=== PATIENT | female | born 1945 | race Two or more races ===

== ENCOUNTER 2021-12-17 08:13 | Outpatient (CLI) | payer BC, SELFPAY ==
--- OUTSIDE RECORDS SUMMARY | 2021-12-17 08:17 | XMS_ITS | Encounter Summary ---
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 Referral ID Status Reason Start Date Expiration Date Visits Requ ested Visits Authorized [id number] Closed 04/01/2021 04/01/2022 1 1 Encounter Details Date Type Department Care Team Description 06/24/2021 Office Visit Department of Jason Billings, Focal Com plex Partial Neurology in [place], M.P.H. Epilepsy Not [place], [place] Intractable Without [address] Status Epilepticus [place], [place] (HCC) (Primary Dx) [id number] Social History Tobacco Use Types Packs/Day Years Used Date Smoking Tobacco: Never Smokeless Tobacco: Never Alcohol Use Standard Drinks/Week Comments Never 0 (1 standard drink = 0.6 oz pure alcoho l) Alcohol Habits Answer Date Recorded How often do you have a drink containing alcohol? Never 03/27/2021 How many drinks containing alcohol do you have on a typical Not asked day when you are drinking? How often do you have six or more drinks on one occasion? No t asked Social Isolation Answer Date Recorded In a typical week, how many times do you More than three norbert es a week 03/27/2021 talk on the phone with family, friends, or neighbors? How often do you get together with friends Once a week 03/27/2021 or relatives? How often do you attend religion or More than 4 times per year 03/27/2021 pentecostalism services? Do you belong to any clubs or No 03/27/2021 organizations such as religion groups, unions, fraOpenRoute or athletic groups, or school groups? How often do you attend meetings of the Never 03/27/2021 clubs or organizations you belong to? Are you now , , , 03/27/2021 , never or living with a partner? Physical Activity Answer Date Recorded On average, how many days per week do you engage in moderate to 2 days 03/27/2021 strenuous exercise (like walking fast, running, jogging, dancing, swimming, biking, or other activities that cause a light or heavy sweat)? On average, how many minutes do you engage in exercise at th is 30 min 03/27/2021 level? Stress Answer Date Recorded Do you feel stress - tense, restless, nervous, or Only a lit tle 03/27/2021 anxious, or unable to sleep at night because your mind is troubled all the time - these days? Intimate Partner Violence Answer Date Recorded Within the last year, have you been afraid of your partner o r No 03/27/2021 ex-partner? Within the last year, have you been humiliated or emotionall y No 03/27/2021 abused in other ways by your partner or ex-partner? Within the last year, have you been kicked, hit, slapped, or No 03/27/2021 otherwise physically hurt by your partner or ex-partner? Within the last year, have you been raped or forced to have any No 03/27/2021 kind of sexual activity by your partner or ex-partner? Food Insecurity Answer Date Recorded Within the past 12 months, you worried that your food would Never true 03/27/2021 run out before you got money to buy more. Within the past 12 months, the food you bought just didn't N ever true 03/27/2021 last and you didn't have money to get more. Transportation Needs Answer Date Recorded In the past 12 months, has lack of transportation kept you f rom No 03/27/2021 medical appointments or from getting medications? In the past 12 months, has lack of transportation kept you f rom No 03/27/2021 meetings, work, or getting things needed for daily living? Housing Stability Answer Date Recorded In the last 12 months, was there a time when you were Patien t refused 03/27/2021 not able to pay the mortgage or rent on time? In the last 12 months, how many places have you lived? 1 03/27/2021 In the last 12 months, was there a time when you did No 03/27/[address] to sleep or slept in a fdc (including now)? Education Answer Date Recorded What is the highest level of school you have completed or th e 3rd grade 03/27/2021 highest degree you have received? 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 - 06/24/2021 1:00 PM CDT SUBJECTIVE Referring Provider: Jason Billings M.D., M.P.H. Consult conducted via real-time audio technology by Jason Billings M.D., M.P.H. in [facility] to the patient in Patient's Home . Interview was performed with certified court interpreter Allison Conn. Video was unavailable. CHIEF COMPLAINT / REASON FOR VISIT Alethea Lambert is a 75 y.o. right-handed female who presents for follow up of seizure.She has a past medical history of HTN and reported remote stroke with minimal residual right hemiparesis and dysphagia, which is disputed (see HPI). Exam provided through the aid of mop worker.Patient's granddaughter, who is bilingual, gives additional collateral. HISTORY OF PRESENT ILLNESS (01/18/20): Patient was in her normal state until November 2019. On 11/24/19 , patient had an episode out of sleep witnessed by wherein she was shaking uncontrollably. It may have lasted for about a minute but this is unclear. She was unable to speak at the time. Her granddaughter noted that she was havingoral automatism- like movements which looked like a goldfish with tongue extension. No bowel/bladder loss or tongue biting. After the shaking, she had hyperventilation. She was unable to speak for ~30 minutes after the shaking; she was able to speak in the ambulance. However, patient herself has no recollection of the event until arrival at the OSH. On admission to OSH, lactate was 3.5, with repeat2.0. Na was 129. SBP was in the 200s per report. She was not started on any ASM during hospitalization and no EEG has ever been performed as of this writing. Subsequently, she was seen in the ED on 12/25/19. Again, she had an event where she woke up her after shaking. She had the same 30-minute postictal phase with oral automatisms. She was started on Keppra 500 mg BID at that time and has had no subsequent events. Regarding patient's stroke diagnosis, it occurred in the [place] about ten years ago. Shereportedly had right sided hemiparesis. She does not remember the sequence of events but she also reportedly had a fall with loss of consciousness for an unspecified period of time. She does not remember any imaging done. It took about a year for her to recover from the right hemiparesis. She now states that she has a voice and bilateral hand tremor, more prominent in the right hand. It is an exclusively action tremor and is significant enough to preclude her from using her right hand to drink beverages. She also has a voice tremor that is stammering, and the aerial photograph interpreter had some difficult understanding her. Follow up (04/25/20): At last visit we titrated Lamotrigine to 100 mg BID (see 01/25/20 note for titration details) and obtained lamotrigine level 6 weeks later (theraputic at 3.1). She has had no subsequent seizures. She is not having the odor/difficulty swallowing she had with Keppra, and is tolerating lamotrigine without rash, dizziness, nausea/vomiting, or other symptoms. She admits she had some issues with compliance when she started lamotrigine but has not had further issues. No staring, auras, focal weakness, numbness, or paresthesia. The tremor she mentioned at initial visit is still there but very slight and does not impair her much. She has no other complaints. 04/01/21: At last visit we continued lamotrigine 100 mg BID as she had been seizure free with no adverse effects. No mohsen rash. Today, she confirms that she has not had any further seizures or adverse effects. No incontinence, tammy vu, or staring spells. She has been having chronic neck and shoulder pain but it has not been getting worse. No focal weakness, numbness, or tingling. There is no focal weakness in her right arm but there is pain. She has been having subacute right ear pain for four months. At the time she was given antibiotics (at outside hospital) for one week. She took the full course. Now, it is less of an ear pain and more of a pulsatile tinnitus over the right ear only. There has been some issues with swallowing as well, which are subacute on chronic. She had been seenby ENT some time ago and they had said there was an issue with her vocal cords. She denies fever, chills, night sweats. She does endorse some chronic rhinorrhea. 06/24/21: At last visit we continued lamotrigine 100 mg BID. Given some issues with dysphasia we referred her to ENT. Her MRI of the neck showed Opacified right petrous apex and moderate right mastoid effusion with associated enhancements possibly consistent with right petrous apicitis. I called her that day.Per my phone call, She had an ear infection some months ago. She was febrile at times some months ago but has not been febrile recently, nor has there been nausea or vomiting. There was otorrhea some months ago. However, she still is having ear pain, retro-orbital pain, and right facial pain. She does not have restriction of her eye movements. I recommended her go to the local ED for a temporal bone CT. She has an ENT visit today. With respect to this, she did go to the emergency room where a CT temporal bone was reportedly unremarkable (we do not have the images). Her WBC count was normal and the ED staff did not feel further antibiotics were necessary. Today, she re-confirms she has not had seizures. She had some light bruising on her arms but no mohsen areas of rash or bullae. No incontinence, tammy vu, or staring spells. The ear pain from last visit has resolved, though she notes her ear is itchy. The pulsatile tinnitusover the right ear is persisting but less notable. There is no vertigo or presyncope. There have been continued issues with swallowing as well, which are subacute on chronic. She had been seen by ENT some time ago and they had said there was an issue with her vocal cords. Her swallow study showed a small sliding hiatal hernia and ring at the gastroesophageal junction that did not delay passage of barium tablet. She denies fever, chills, night sweats. She does endorse some chronic rhinorrhea. Onset: November 2019 Seizure Description: See HPI Current Seizure Control: Two lifetime seizures Risk factors: Quesionable stroke hx Epilepsy Type: Unknown Epilepsy Syndrome: No defined syndrome Etiology: Unknown Prior medications: Keppra 500 mg BID; She has had some issues with reflux and has a bad taste all day after taking keppra. She does endorse compliance. Current medications: LTG 100 mg BID Side effects: n/a Other treatments: N/A Prior workup: MRI: MRI brain w/o contrast 11/24/19: No acute infarct or intracranial abnormality. No edema or other abnormality involving hippocampal sclerosis. Scattered presumed chronic microvascular ischemic changes/senescent gliosis within the supratentorial white matter. MRI brain 01/19/20 ([place]): FINDINGS: Mild asymmetric increase in T2 signal in the left hippocampal formation and left amygdala (series 20 image 100) without abnormal volume loss. ?? No evidence of forman matter heterotopia, polymicrogyria or pachygyria. No cortically based tissue loss. Mild scattered leukoaraiosis. No intracranial mass effect, evidence of acute infarct or extra-axial collection. Mucous retention cysts in the in a left ethmoid air cell and left inferior maxillary sinus. ?? Image post-processing for quantitative segmental volume reporting and assessment was performed on an independent computer warrant server using [employer] software. The clinical indication for performing the post-processing was seizure . Review of the head of quality images demonstrates good/poor segmentation of the hippocampi. ?? Left hippocampal volume: 3.23 cm3 Left hippocampal volume age-adjusted percentile: 85 % Right hippocampal volume: 3.44 cm3 Right hippocampal volume age-adjusted percentile: 87 % Hippocampal asymmetry index: -6.36 % Asymmetry index percentile: 45th percentile ?? IMPRESSION: Slightly increased T2 signal within the left hippocampal formation and left amygdala without asymmetric volume loss. EEG/EMU: Clinical Interpretation: The short-term video EEG shows a moderate degree of nonspecific slow wave abnormalities over the bilateral temporal regions, which occurs maximally over the left temporal region. There is excess generalized fast activity present, which can be seen secondary to medication effects. The sleep recording was unsuccessful. No definitively epileptiform activity was present during the awake or drowsy recordings. ?? PET: N/A OTHER: N/A Co-morbidities: N/A Is the patient aware of driving and other safety concerns related to epilepsy: Patient does not drive If the patient is female and of child-bearing age, is she aware how epilepsy medications may affect contraceptive use and ?: Not applicable The following portions of the patient's history were reviewed and updated as appropriate: allergies,current medications, family history, medical history, social history, surgical history and problem list. REVIEW OF SYSTEMS Ten point review of systems completed; pertinent positives noted in HPI. OBJECTIVE I have reviewed vital signs as recorded in the EPIC record. PHYSICAL EXAM Mental Status: General - Awake, alert. Orientation - Oriented to person, place, time, and situation. Attention - Attends to examiner. Language - Normal fluency, and prosody, able to name and repeat Memory - Good recall of personal information. Knowledge - Fund of knowledge is appropriate ?? Cranial Nerves: II -Attends to all visual freeman. Visual acuity is grossly normal.?? PERRLA. III, IV, - EOMI, without nystagmus V - Intact to light touch in all distributions VII -Facial symmetry VIII - Hearing is intact to voice and finger rub bilaterally IX/X - Palate elevates symmetrically XI - Shoulder shrug and Head turning is symmetric and strong XII - Tongue protrudes in the midline ?? Motor: Bulk - Normal Tone - Normal Strength - 5/5 in all proximal and distal muscle groups Pronator Drift - No drift in BUE Abnormal Movements - Subtle tremor in b/l arms, L>R ?? Sensation: intact to light touch x 4 ?? Coordination: No ataxia or dysmetria on [id number] and [id number] bilaterally.?? Normal fingertapping and other EUGENIA's are intact. Reflexes (R/L): Biceps 2+/2+, brachioradialsis 2+/2+, triceps 2+/2+; patellar 2+/2+, achilles 2+/2+.?? Toes downgoing to plantar stimulation bilaterally.? Gait:?? Normal Gait and Station, Arm swing is of normal amplitude and symmetric In summary, 75 y.o. female with two impaired awareness events out of sleep associated with oral automatisms, in the context of T2 signal increase in hippocampus on the left and indeterminant findings on EEG. This is consistent with a focal epilepsy. She has been responsive to lamotrigine without any is sues. She has been complaining of subacute on chronic dysphagia, neck pain, right ear pain/pulsatile tinnitus, and sinus pain. She is slated to see ENT today. She may need referral to a GI specialist with regard to the hiatal hernia; will follow up ENT recommendations. She will follow up with neurology in 6 months. 1. Pulsatile Tinnitus Right Ear - Otorhinolaryngology - Laryngology and voice disorders consult (clinic); Future 2. 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 Dysphagia - MR Neck Soft Tissue without and with IV Contrast; Future - Follow up ENT recommendations PATIENT EDUCATION The impression and treatment plan were explained in detail to the patient/family who expressed an understanding of the content. The patient/family was ready to learn with no apparent learning barriers identified. Questions were answered. A written copy of this note will be provided to the patient/family. The patient is reminded about safety issues in epilepsy. Water safety: The patient should take showers instead of baths, not swim alone or in open water, andavoid heights or other situations where experiencing a seizure would be dangerous. Further information on seizure safety and first aid, state driving laws, epilepsy and SUDEP is available at http://www.epilepsyfoundation.org. BILLING Total time spent with patient/family was 30 minutes, greater than 50% of which was spent in counseling and discussion and/or coordination of care as described above. documented in this encounter Plan of Treatment Scheduled Referrals Name Type Priority Associated Diagnoses Order S [facility] Neurology office Outpatient Referral Routine Focal Complex Exp ected: visit (clinic) Partial Epilepsy Not 12/25 Intractable Without (Approxi mate), Status Epilepticus Expires: (HCC) 09/24/2022 documented as of this encounter Visit Diagnoses Diagnosis 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 Care Teams Coupon Redemption Clerk Relationship Specialty Start Date End Date Elsewhere, Pcp PCP - General Internal Medicine 03/29/21 documented as of this encounter
--- OUTSIDE RECORDS SUMMARY | 2021-12-17 08:17 | XMS_ITS | Encounter Summary ---
:1945 Author Organization [facility] Address [address] [place] [address] Care Team Providers Name Role Phone Elsewhere, Pcp Primary Care Provider Unavailable Encounter Details Date Type Department Care Team Description 04/08/2021 Clinical Department of Raymond Pedraza Otorhinolaryngology in [place], [place] [address] [place] [id number] Social History Tobacco Use Types Packs/Day Years [...] or relatives? How often do you attend lutheran or More than 4 times per year 03/27/2021 presybeterian services? Do you belong to any clubs or No 03/27/2021 organizations such as lutheran groups, unions, fraternal or athletic groups, or school groups? How [...] place to sleep or slept in a group home (including now)? Education Answer Date Recorded What is the highest level of school you have completed or th e 3rd grade 03/27/2021 highest degree you have received? 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
--- OUTSIDE RECORDS SUMMARY | 2021-12-17 08:17 | XMS_ITS | Encounter Summary ---
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 Referral ID Status Reason Start Date Expiration Date Visits Requ ested Visits Authorized [id number] Closed 04/08/2021 04/08/2022 1 1 ET WRITER Outpatient (Routine) - Closed Specialty Diagnoses / Procedures Referred By Contact Refer red To Contact Diagnoses Dysphagia Jason Billings M.D., [facility] Procedures [place] Swallow Function with Video and Speech or OT M.P.H. Referral ID Status Reason Start Date Expiration Date Visits Requ ested Visits Authorized [id number] Closed 04/08/2021 04/08/2022 1 1 ET WRITER Speech Pathology (Routine) - Closed Specialty Diagnoses / Procedures Referred By Contact Refer red To Contact Diagnoses Dysphagia Jason Billings M.D., [facility] Procedures AGRICULTURAL SERVICE TECHNICIAN Dysphagia evaluate and treat M.P.H. Referral ID Status Reason Start Date Expiration Date Visits Requ ested Visits Authorized [id number] Closed 04/08/2021 04/08/2022 1 1 ET WRITER Reason for Visit Reason Comments [place] Encounter Details Date Type Department Care Team Description 04/03/2021 Clinical Communication Department of Zeus Kelly Otorhinolaryngology in [place], [place] [phone] [address] [facility] [place] (Work) [place] [phone] Social History Tobacco Use Types Packs/Day [...] or relatives? How often do you attend mandaen or More than 4 times per year 03/27/2021 christianity services? Do you belong to any clubs or No 03/27/2021 organizations such as mandaen groups, unions, fraternal or athletic groups, or [...] place to sleep or slept in a detention (including now)? Education Answer Date Recorded What is the highest level of school you have completed or th e 3rd grade 03/27/2021 highest degree you have received? 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 - 04/04/2021 12:32 PM TICKET WRITER Per referring provider note: She has been complaining of subacute on chronic dysphagia, neck pain, right ear pain/pulsatile tinnitus, and sinus pain. As part of the workup we will order MRI brain, MRI neck soft tissue, and ENT. She will follow up with neurology in 1 year, sooner if needed. Will need multiple appointments with prerequisite testing for each: Ear pain, pulsatile tinnitus: Medical ENT or [place] [facility], need [place] audiogram first. Non-urgent, open CONS no overrides for CONS or audiogram. F2F only Dysphagia, Neck pain: Need video swallow with esophagram first. F2F only. Medical ENT or Aaron/ Angel/ Raiza Burt Order provider needs to place appropriate orders. Do not schedule both visits with the same provider. Dc ET WRITER Telephone Encounter - Zeus Kelly - 04/03/2021 4:21 PM CST Lissa, Per the below triage note, can we please have Medical triage this one? Uvaldo Tee M.D. 04/02/2021 11:21 AM TICKET WRITER Would Medical ENT be able to triage this request please? She has vocal cord insufficiency which often means bowing and usually is nonsurgical- often just send to AGRICULTURAL SERVICE TECHNICIAN. Also, has sinus issues and rightear tinnitus. Thanks for considering. If AGRICULTURAL SERVICE TECHNICIAN thi nks there is a need for vocal cord injections, then they would let us know in laryngology. DCE Thank you, Jaciel ET WRITER documented in this encounter Plan of Treatment Not on filedocumented as of this encounter Results Audiology evaluation (06/24/2021 12:00 AM CDT) Specimen (Source) Anatomical Location Collection Method / Collectio n Time Received Time / Laterality Volume 06/24/2021 Narrative This result has an attachment that is no t available. Jason Billings M.D., [facility]P.[facility] AUDIOLOGY SERVICES ORDERA BLES Performing Organization Address City/State/ZIP Code Phon e Number [facility] [place] Swallow Function with Video and Speech or OT (06/19/2021 10:35 AM CDT) Anatomical Region Laterality Modality Gastro Intestinal, Abdominal RST LOS, Abdominal ARZ N/A Digital Radiography LOS, Abdominal FLA LOS Specimen (Source) Anatomical Collection Method Collection Time Re ceived Time Location / / Volume Laterality 06/19/2021 12:05 PM CDT Impressions 06/19/2021 12:19 PM CDT 1. ??Mild flash laryngeal penetration of thin liquid consistency. Otherwise, no laryngeal penetration or aspiration of any consistency. Please see speech pathology report for further details. 2. ??Small sliding hiatal hernia. Ring a t the gastroesophageal junction appeared prominent. Although it did not delay passage of a 13 mm jessica um tablet, it remains suspicious as a potential cause of dysphagia. Narrative 06/19/2021 12:19 PM CDT EXAM: ??FL SWALLOW FUNCTION WITH VIDEO AND SPEECH OR OT FOR RST, FL ESOPHAGRAM DOUBLE CONTRAST COMPARISON: ??None. FINDINGS: Fluoroscopic video swallow study was per formed in conjunction with speech pathology. Barium preparations of thin liquid, applesauce, and cookie consistencies were swallowed. Mild flash laryngeal penetration of thin liquid con sistency. Otherwise, no laryngeal penetration or aspiration of any consistency. Mild vallecular resi due of applesauce and cookie consistencies. Normal caliber esophagus. Esophageal per istalsis is intact. No gastroesophageal reflux was witnessed. Small sliding hiatal hernia w ith prominent ring at the gastroesophageal junction. However, this ring did not delay passage of a 13 mm barium tablet. Procedure Note Dharmesh Suero M.D., Ph.D. - 2 EXAM: FL SWALLOW FUNCTION WITH VIDEO AND SPEECH OR OT FOR RST, FL ESOPHAGRAM DOUBLE CONTRAST COMPARISON: None. FINDINGS: Fluoroscopic video swallow study was per formed in conjunction with speech pathology. Barium preparations of thin liquid, applesauce, and cookie consistencies were swallowed. Mild flash laryngeal penetration of thin liquid con sistency. Otherwise, no laryngeal penetration or aspiration of any consistency. Mild vallecular resi due of applesauce and cookie consistencies. Normal caliber esophagus. Esophageal per istalsis is intact. No gastroesophageal reflux was witnessed. Small sliding hiatal hernia w ith prominent ring at the gastroesophageal junction. However, this ring did not delay passage of a 13 mm barium tablet. IMPRESSION: 1. Mild flash laryngeal penetration of t hin liquid consistency. Otherwise, no laryngeal penetration or aspiration of any consistency. Please see speech pathology report for further details. 2. Small sliding hiatal hernia. Ring at the gastroesophageal junction appeared prominent. Although it did not delay passage of a 13 mm jessica um tablet, it remains suspicious as a potential cause of dysphagia. Jason Billings M.D., M.P.[facility]. IMG FLUOROSCOPY PROCEDURE S documented in this encounter Visit Diagnoses Diagnosis Tinnitus Right - Primary Dysphagia Dysphagia documented in this encounter Care Teams Adult Basic Studies Teacher Relationship Specialty Start Date End Date Elsewhere, Pcp PCP - General Internal Medicine 03/29/21 documented as of this encounter
--- OUTSIDE RECORDS SUMMARY | 2021-12-17 08:17 | XMS_ITS | Encounter Summary ---
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 Referral ID Status Reason Start Date Expiration Date Visits Requ ested Visits Authorized [id number] Closed 04/08/2021 04/08/2022 1 1 Encounter Details Date Type Department Care Team Description 06/19/2021 Comprehensive Visit Department of Jason Billings M. D., M.P.H. Dysphagia Oropharyngeal Phase (Primary Dx); Neurology in Tori Xiong M.A., [facility]-CRUTCHER HELPER [address] [place] [phone] Dysphagia [place], [place] [address] [place] [address] Social History Tobacco Use Types Packs/Day Years [...] or relatives? How often do you attend yazdanism or More than 4 times per year 03/27/2021 christianity services? Do you belong to any clubs or No 03/27/2021 organizations such as yazdanism groups, unions, fraternal or athletic groups, or [...] place to sleep or slept in a senior living (including now)? Education Answer Date Recorded What is the highest level of school you have completed or th e 3rd grade 03/27/2021 highest degree you have received? 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 The patient was placed on Keppra 500 mg BID and later titrated to [id number] mg BID, with no subsequent seizures reported. The patient also had reported ENT evaluation whichrevealed an issue with the VF (documentation not available at the time of this report). Please refer to patient EHR for further history and details. The patient's granddaughter was present during today's evaluation and was able to provide additionalbackground information. She reported that the patient was evaluated by an ENT in [place] a few years ago due to patients concerns of bad breath and difficulty swallowing. She reported that the patient was told that the knots in her throat were weak and did not close all the way, and that the likely cause of bad breath was acid reflux. The patient endorsed coughing/choking when eating and drinking, and stated that she has to drink a lot of liquid with food. She endorsed a sensation of nasal regurgitation, stating that it feels as though food/liquid is getting caught somewhere up in her nose and is causing bad breath. She endorsed vocal changes, stating that it sometimes feels as though there is a tightening in her chest and that her voice sometimes gets blocked to the point where she is unable to speak. Her granddaughter reported that the patient previously had an ulcer repaired and has since been taking omeprazole and famotidine. She reported that her weight has been fairly stable, although she believes she may have gained a small amount. Referral to Speech Pathology included an order for clinical swallow evaluation and videofluoroscopicswallow study (VFSS), allowing for comprehensive assessment of the oral and pharyngeal stages of theswallow. Pain Pain Assessment Pain Assessment: 0-10 Numeric Pain Intensity Scale Pain Score: 0 - No pain OBJECTIVE Oral Motor Dentition: Dentures top, Dentures bottom Facial Symmetry: (0) Within Normal Limits Labial Structure and Function Labial Structure and Function: Within Normal Limits (WNL) Lingual Structure and Function Lingual Structure and Function: Within Normal Limits (WNL) Motor Speech Voice: Impaired Voice Stoppage/Arrests: Mild Articulation: Within Normal Limits (WNL) Intelligibility: Intelligibility reduced Intelligibility Connected Speech/Conversation: (1) Mild Flowsheet Row Most Recent Value Consistencies Assessed (MBS) Consistencies Assessed Yes Thin Lip Closure 0: No labial escape Tongue Control 0: Cohesive bolus between tongue to palatal seal Bolus Transport/Lingual Motion 0: Brisk tongue motion Oral Residue 2: Residue collection on oral structures Oral Residue Location Tongue Onset of Pharyngeal Swallow 3: Bolus head in pyriforms Soft Palate Elevation 0: No bolus between soft palate (SP)/pharyngeal wall (PW) Laryngeal Elevation 0: Complete superior movement of thyroid cartilage with complete approximation of arytenoids to epiglottic petiole Anterior Hyoid Excursion 1: Partial anterior movement Epiglottic Movement 1: Partial inversion Laryngeal Vestibular Closure 1: Incomplete, narrow column air/contrast in laryngeal vestibule Pharyngeal Stripping Wave 0: Present - complete Pharyngeal Contraction AP View only 0: Complete Pharyngoesophageal Segment Opening 0: Complete distension and complete duration, no obstruction of flow Tongue Base Retraction 1: Trace column of contrast or air between TB and PW Pharyngeal Residue 1: Trace residue within or on pharyngeal structures Pharyngeal Residue Location Valleculae, Tongue Base Esophageal Clearance 1: Esophageal retention Penetration/Aspiration Scale 2: Material enters the airway, remains above the vocal folds, and is ejected from the airway. Puree Lip Closure 0: No labial escape Tongue Control 0: Cohesive bolus between tongue to palatal seal Bolus Transport/Lingual Motion 0: Brisk tongue motion Oral Residue 1: Trace residue lining oral structures Oral Residue Location Palate, Tongue Onset of Pharyngeal Swallow 0: Bolus head at posterior angle of ramus (first hyoid excursion) Soft Palate Elevation 0: No bolus between soft palate (SP)/pharyngeal wall (PW) Laryngeal Elevation 0: Complete superior movement of thyroid cartilage with complete approximation of arytenoids to epiglottic petiole Anterior Hyoid Excursion 1: Partial anterior movement Epiglottic Movement 1: Partial inversion Laryngeal Vestibular Closure 0: Complete, no air/contrast in laryngeal vestibule Pharyngeal Stripping Wave 0: Present - complete Pharyngoesophageal Segment Opening 0: Complete distension and complete duration, no obstruction of flow Tongue Base Retraction 2: Narrow column of contrast or air between TB and PW Pharyngeal Residue 2: Collection of residue within or on pharyngeal structures Pharyngeal Residue Location Valleculae, Tongue Base, Pyriform sinuses Penetration/Aspiration Scale 1: Material does not enter airway Solid/Regular Lip Closure 0: No labial escape Tongue Control 0: Cohesive bolus between tongue to palatal seal Bolus Prep/Mastication 1: Slow prolonged chewing/mashing with complete re-collection Bolus Transport/Lingual Motion 0: Brisk tongue motion Oral Residue 2: Residue collection on oral structures Oral Residue Location Tongue, Lateral sulci Onset of Pharyngeal Swallow 0: Bolus head at posterior angle of ramus (first hyoid excursion) Soft Palate Elevation 0: No bolus between soft palate (SP)/pharyngeal wall (PW) Laryngeal Elevation 0: Complete superior movement of thyroid cartilage with complete approximation of arytenoids to epiglottic petiole Anterior Hyoid Excursion 0: Complete anterior movement Epiglottic Movement 0: Complete inversion Laryngeal Vestibular Closure 0: Complete, no air/contrast in laryngeal vestibule Pharyngeal Stripping Wave 0: Present - complete Pharyngoesophageal Segment Opening 0: Complete distension and complete duration, no obstruction of flow Tongue Base Retraction 2: Narrow column of contrast or air between TB and PW Pharyngeal Residue 2: Collection of residue within or on pharyngeal structures Pharyngeal Residue Location Valleculae, Tongue Base Penetration/Aspiration Scale 1: Material does not enter airway MBSImP Scores Oral Impairment Score 6 Pharyngeal Impairment Score 7 Esophageal Impairment Score 1 Assessment During the videofluoroscopic swallow study, lateral and AP views were recorded as the patient swallowed thin barium, nectar-thick barium (AP view only), barium pudding, and a cookie tagged with barium.Oral control of all consistencies was within functional limits. The pharyngeal swallow triggered at the level of the pyriform sinuses with thin liquid. Range of tongue base retraction was within functional limits. Hyolaryngeal excursion was minimally reduced. The epiglottis achieved only partial inversion with thin liquid and puree consistency. There was transient penetration of thin liquid. No aspiration observed with any consistency. Each bolus efficiently cleared the pharynx with a single swallow. There was mild vallecular residue of puree and solid consistency, which improved with a subsequent swallow and liquid wash. AP view revealed symmetrical flow through the pharynx. Relaxation through the cricopharyngeal segment was good. In summary, the patient's oropharyngeal swallow was within functional limits during today's evaluation. Recommend she continue a regular diet with thin liquids and adherence to precautions as outlined below. Patient was encouraged to contact primary physician should symptoms of dysphagia worsen. An esophagram was completed immediately following today's study. Please refer to Radiology report for details and images. The patient was educated that this clinician does not interpret the results of the esophagram portion of today's evaluation. They are encouraged to contact the referring provider for that information. Contact Monitoring: Clinician was wearing the following PPE for the duration of today's session(s): surgical mask and eye protection Functional Oral Intake Scale: Level 7 - Total oral diet with no restrictions Diagnosis: Within Functional Limits (WFL) Plan DYSPHAGIA RECOMMENDATIONS: 1. Diet Recommendation-Solids: Regular 2. Diet Recommendation-Liquids: Thin 3. Medication Recommendation: Whole, With liquid, With puree 4. Safety Precautions: a. Sit upright b. Eat/drink slowly c. Take small bites/sips one at a time d. Alternate foods and liquids 5. Patient may benefit from ENT consult for further evaluation of symptoms (voice blocking, occasionally being unable to speak) 6. Follow up with Speech Pathology should symptoms of dysphagia change/worsen, or as clinically indicated. documented in this encounter Plan of Treatment Not on filedocumented as of this encounter Visit Diagnoses Diagnosis Dysphagia Oropharyngeal Phase - Primary Dysphagia documented in this encounter Care Teams Supervisor [employer] Relationship Specialty Start Date End Date Elsewhere, Pcp PCP - General Internal Medicine 03/29/21 documented as of this encounter
--- OUTSIDE RECORDS SUMMARY | 2021-12-17 08:17 | XMS_ITS | Encounter Summary ---
:1945 Author Organization [facility] Address [address] [place] [address] Care Team Providers Name Role Phone Elsewhere, Pcp Primary Care Provider Unavailable Reason for Referral MRI/CAT/PET Scan (Routine) - Closed Specialty Diagnoses / Procedures Referred By Contact Refer red To Contact Radiology Diagnoses Dysphagia Jason Billings M.D., [facility] Procedures MR Neck Soft Tissue without and with IV Contrast M.P.H. Referral ID Status Reason Start Date Expiration Date Visits Requ ested Visits Authorized [id number] Closed 04/01/2021 04/01/2022 1 1 MRI/CAT/PET Scan (Routine) - Closed Specialty Diagnoses / Procedures Referred By Contact Refer red To Contact Radiology Diagnoses Pulsatile Tinnitus Right Ear Jason Billings M.D., [facility] Procedures MR Brain without and with IV Contrast M.P.H. Referral ID Status Reason Start Date Expiration Date Visits Requ ested Visits Authorized [id number] Closed 04/01/2021 04/01/2022 1 1 Reason for Visit MRI/CAT/PET Scan (Routine) - Closed Specialty Diagnoses / Procedures Referred By Contact Refer red To Contact Radiology Diagnoses Dysphagia Jason Billings M.D., [facility] Procedures MR Neck Soft Tissue without and with IV Contrast M.P.H. Referral ID Status Reason Start Date Expiration Date Visits Requ ested Visits Authorized [id number] Closed 04/01/2021 04/01/2022 1 1 Encounter Details Date Type Department Care Team Description 06/19/2021 Hospital Encounter Department of Jason Billings ile Tinnitus Right Ear; Radiology, Giancarlo Chow M.D., [facility] Dysph osmani Liu, in [place], [place] [address] [place] [address] Social History Tobacco Use Types Packs/Day Years [...] or relatives? How often do you attend scientology or More than 4 times per year 03/27/2021 nondenominational services? Do you belong to any clubs or No 03/27/2021 organizations such as scientology groups, unions, fraternal or athletic groups, or [...] place to sleep or slept in a mcc (including now)? Education Answer Date Recorded What is the highest level of school you have completed or th e 3rd grade 03/27/2021 highest degree you have received? Sex Assigned at Date Recorded Female 03/27/2021 5:56 PM [employer] documented as of this encounter Last Filed Vital Signs Vital Sign Reading Time Taken Comments Blood Pressure - - Pulse - - Temperature - - Respiratory Rate - - Oxygen Saturation - - Inhaled Oxygen Concentration - - Weight 61.2 kg (135 lb) 06/19/2021 12:49 PM CDT Height 162.6 cm (5' 4) 06/19/2021 12:49 PM CDT Body Mass Index 23.17 06/19/2021 12:49 PM CDT documented in this encounter Medications at Time of Discharge Medication Sig Dispensed Refills Start Date End Date acetaminophen (TYLENOL) Take 1,000 mg by 0 500 mg tablet mouth as needed for pain. alendronate (FOSAMAX) 70 Take 70 mg by mouth 0 mg tablet once a week. amLODIPine (NORVASC) 10 mg Take 10 mg by mouth 0 12/21/2019 tablet daily. aspirin [address] tablet Take 81 mg by mouth 0 daily. lisinopriL Take 30 mg by mouth 0 12/22/2019 (PRINIVIL,ZESTRIL) 30 mg daily. tablet omeprazole (PriLOSEC) 20 Take 20 mg by mouth [address] capsule daily. rosuvastatin (CRESTOR) 5 Take 5 mg by mouth 0 mg tablet daily. lamoTRIgine (LaMICtaL) 100 Take 1 tablet (100 60 tablet 3 0 02/18/2021 06/24/2021 mg tablet mg total) by mouth 2 (two) times a day. documented as of this encounter Plan of Treatment Not on filedocumented as of this encounter Procedures Procedure Name Priority Date/Time Associated Comments Diagnosis MR NECK SOFT RAD - Routine 06/19/2021 2:26 Dysphagia Results for this TISSUE WITHOUT (most inpatients PM CDT procedure are in AND WITH IV and all the results CONTRAST outpatients) section. MR BRAIN WITHOUT RAD - Routine 06/19/2021 2:26 Pulsatile Results for this AND WITH IV (most inpatients PM CDT Tinnitus Right procedure are in CONTRAST and all Ear the results outpatients) section. documented in this encounter Results MR Neck Soft Tissue without and with IV Contrast (06/19/2021 2:26 PM CDT) Anatomical Region Laterality Modality Neck, Neuroradiology RST LOS, Neuroradiology ARZ LOS, N/A Magnetic Resonance Neuroradiology FLA LOS Specimen (Source) Anatomical Collection Method Collection Time Re ceived Time Location / / Volume Laterality 06/19/2021 3:36 PM CDT Impressions 06/19/2021 4:29 PM CDT 1. Opacified right petrous apex and moderate right mastoid effusion with associated enhancements, new since 2019 exams. Although could be reactive inflammatory change from recent otitis media, right petrous apicitis could be considered in the correct clinical setting given the enhancement. If clinically indicated, temporal bone CT c ould be helpful to assess bony integrity. 2. No acute intracranial finding. Signal abnormality in the left hippocampal formation was better assessed in prior MRI. 3. No abnormal mass within the soft tiss ues of the neck. Narrative 06/19/2021 4:29 PM CDT EXAM: MR BRAIN WITHOUT AND WITH IV CONTRAST, MR NECK SOFT TISSUE WITHOUT AND WITH IV CONTRAST COMPARISON: Brain MRI 01/19/2020. Head C T 11/24/2019. FINDINGS: Brain MRI: No intracranial mas s, mass effect, evidence of intracranial hemorrhage, acute infarct or extra-axial collection. No ve ntriculomegaly. Previously described asymmetric T2 hyperintensity in the left hippocampal f ormation was better assessed in 01/19/2020 MRI and is likely similar. Mild generalized cerebral volum e loss. Mild scattered leukoaraiosis in the cerebral hemispheres, similar to 2020 MRI. No mark triculomegaly. No suspicious intracranial enhancement. Benign left frontal lobe developmental v enous anomaly. No abnormal restricted diffusion. Face MRI: New opacification of pneumatiz ed right petrous apex with contrast enhancement compared to 2020 exams. No associated abnormality wi thin the right Meckel's cave and cavernous sinus. Additional moderate mastoid effusions with reactive appearing enhancements, new since 2020. No definite associated restricted diffusion. No abnormal mass or suspicious enhanceme nt within the soft tissues of the neck. Scattered cervical lymph nodes measuring subcentimeter in s hort axis are not pathologically enlarged by size criteria and could be reactive, similar to 2020 M RI. Fatty atrophy of the right submandibular gland, similar to prior study. The bilateral parotid an d left submandibular glands are normal. The thyroid gland is unremarkable. Procedure Note Raffaele Garcia M.D. - 06/19/2021Formatti ng of this note might be different from the original. EXAM: MR BRAIN WITHOUT AND WITH IV CONTR AST, MR NECK SOFT TISSUE WITHOUT AND WITH IV CONTRAST COMPARISON: Brain MRI 01/19/2020. Head C T 11/24/2019. FINDINGS: Brain MRI: No intracranial mas s, mass effect, evidence of intracranial hemorrhage, acute infarct or extra-axial collection. No ve ntriculomegaly. Previously described asymmetric T2 hyperintensity in the left hippocampal f ormation was better assessed in 01/19/2020 MRI and is likely similar. Mild generalized cerebral volum e loss. Mild scattered leukoaraiosis in the cerebral hemispheres, similar to 2020 MRI. No mark triculomegaly. No suspicious intracranial enhancement. Benign left frontal lobe developmental v enous anomaly. No abnormal restricted diffusion. Face MRI: New opacification of pneumatiz ed right petrous apex with contrast enhancement compared to 2020 exams. No associated abnormality wi thin the right Meckel's cave and cavernous sinus. Additional moderate mastoid effusions with reactive appearing enhancements, new since 2019. No definite associated restricted diffusion. No abnormal mass or suspicious enhanceme nt within the soft tissues of the neck. Scattered cervical lymph nodes measuring subcentimeter in s hort axis are not pathologically enlarged by size criteria and could be reactive, similar to 2020 M RI. Fatty atrophy of the right submandibular gland, similar to prior study. The bilateral parotid an d left submandibular glands are normal. The thyroid gland is unremarkable. IMPRESSION: 1. Opacified right petrous apex and mode rate right mastoid effusion with associated enhancements, new since 2019 exams. Although could be reactive inflammatory change from recent otitis media, right petrous apicitis could be considered in the correct clinical setting given the enhancement. If clinically indicated, temporal bone CT c ould be helpful to assess bony integrity. 2. No acute intracranial finding. Signal abnormality in the left hippocampal formation was better assessed in prior MRI. 3. No abnormal mass within the soft tiss ues of the neck. Jason Billings M.D., M.[facility]. IM MRI PROCEDURES MR Brain without and with IV Contrast (06/19/2021 2:26 PM CDT) Anatomical Region Laterality Modality Head, Brain, Neuroradiology RST LOS, Neuroradiology ARZ N/A Magnetic Resonance LOS, Neuroradiology FLA LOS Specimen (Source) Anatomical Collection Method Collection Time Re ceived Time Location / / Volume Laterality 06/19/2021 3:36 PM CDT Impressions 06/19/2021 4:29 PM CDT 1. Opacified right petrous apex and moderate right mastoid effusion with associated enhancements, new since 2019 exams. Although could be reactive inflammatory change from recent otitis media, right petrous apicitis could be considered in the correct clinical setting given the enhancement. If clinically indicated, temporal bone CT c ould be helpful to assess bony integrity. 2. No acute intracranial finding. Signal abnormality in the left hippocampal formation was better assessed in prior MRI. 3. No abnormal mass within the soft tiss ues of the neck. Narrative 06/19/2021 4:29 PM CDT EXAM: MR BRAIN WITHOUT AND WITH IV CONTRAST, MR NECK SOFT TISSUE WITHOUT AND WITH IV CONTRAST COMPARISON: Brain MRI 01/19/2020. Head C T 11/24/2019. FINDINGS: Brain MRI: No intracranial mas s, mass effect, evidence of intracranial hemorrhage, acute infarct or extra-axial collection. No ve ntriculomegaly. Previously described asymmetric T2 hyperintensity in the left hippocampal f ormation was better assessed in 01/19/2020 MRI and is likely similar. Mild generalized cerebral volum e loss. Mild scattered leukoaraiosis in the cerebral hemispheres, similar to 2020 MRI. No mark triculomegaly. No suspicious intracranial enhancement. Benign left frontal lobe developmental v enous anomaly. No abnormal restricted diffusion. Face MRI: New opacification of pneumatiz ed right petrous apex with contrast enhancement compared to 2020 exams. No associated abnormality wi thin the right Meckel's cave and cavernous sinus. Additional moderate mastoid effusions with reactive appearing enhancements, new since 2020. No definite associated restricted diffusion. No abnormal mass or suspicious enhanceme nt within the soft tissues of the neck. Scattered cervical lymph nodes measuring subcentimeter in s hort axis are not pathologically enlarged by size criteria and could be reactive, similar to 2020 M RI. Fatty atrophy of the right submandibular gland, similar to prior study. The bilateral parotid an d left submandibular glands are normal. The thyroid gland is unremarkable. Procedure Note Raffaele Garcia M.D. - 06/19/2021Formatti ng of this note might be different from the original. EXAM: MR BRAIN WITHOUT AND WITH IV CONTR AST, MR NECK SOFT TISSUE WITHOUT AND WITH IV CONTRAST COMPARISON: Brain MRI 01/19/2020. Head C T 11/24/2019. FINDINGS: Brain MRI: No intracranial mas s, mass effect, evidence of intracranial hemorrhage, acute infarct or extra-axial collection. No ve ntriculomegaly. Previously described asymmetric T2 hyperintensity in the left hippocampal f ormation was better assessed in 01/19/2020 MRI and is likely similar. Mild generalized cerebral volum e loss. Mild scattered leukoaraiosis in the cerebral hemispheres, similar to 2020 MRI. No mark triculomegaly. No suspicious intracranial enhancement. Benign left frontal lobe developmental v enous anomaly. No abnormal restricted diffusion. Face MRI: New opacification of pneumatiz ed right petrous apex with contrast enhancement compared to 2020 exams. No associated abnormality wi thin the right Meckel's cave and cavernous sinus. Additional moderate mastoid effusions with reactive appearing enhancements, new since 2020. No definite associated restricted diffusion. No abnormal mass or suspicious enhanceme nt within the soft tissues of the neck. Scattered cervical lymph nodes measuring subcentimeter in s hort axis are not pathologically enlarged by size criteria and could be reactive, similar to 2020 M RI. Fatty atrophy of the right submandibular gland, similar to prior study. The bilateral parotid an d left submandibular glands are normal. The thyroid gland is unremarkable. IMPRESSION: 1. Opacified right petrous apex and mode rate right mastoid effusion with associated enhancements, new since 2020 exams. Although could be reactive inflammatory change from recent otitis media, right petrous apicitis could be considered in the correct clinical setting given the enhancement. If clinically indicated, temporal bone CT c ould be helpful to assess bony integrity. 2. No acute intracranial finding. Signal abnormality in the left hippocampal formation was better assessed in prior MRI. 3. No abnormal mass within the soft tiss ues of the neck. Jason Billings M.D., [facility] IMG MRI PROCEDURES documented in this encounter Visit Diagnoses Diagnosis Pulsatile Tinnitus Right Ear Dysphagia documented in this encounter Administered Medications Inactive Administered Medications - up to 3 most recent administrations Medication Order MAR Action Action Date Dose Rate Site gadobutrol injection 0.01-30 mL Given 06/19/2021 2:14 PM CDT 7 m L (GADAVIST) 0.01-30 mL, intravenous, Once in imaging, contrast, Starting on Thu06/19/21 at 1249, For 1 dose, Imaging Protocol Orders, Dose per Radiant Medication Guidelines Intrathecal doses greater than 0.25 mL not recommended. documented in this encounter Care Teams Industrial Design Intern Relationship Specialty Start Date End Date Elsewhere, Pcp PCP - General Internal Medicine 03/29/21 documented as of this encounter
--- OUTSIDE RECORDS SUMMARY | 2021-12-17 08:17 | XMS_ITS | Encounter Summary ---
:1945 Author Organization [facility] Address [address] [place] [address] Care Team Providers Name Role Phone Unavailable Primary Care Provider Unavailable Reason for Referral Outpatient (Routine) - Closed Specialty Diagnoses / Procedures Referred By Contact Refer red To Contact Neurology Jason Billings M.D., [facility] Referral ID Status Reason Start Date Expiration Date Visits Requ ested Visits Authorized [id number] Closed 04/25/2020 04/25/2021 1 1 Reason for Visit Outpatient (Routine) - Closed Specialty Diagnoses / Procedures Referred By Contact Refer red To Contact Neurology Jason Billings M.D., [facility] Referral ID Status Reason Start Date Expiration Date Visits Requ ested Visits Authorized [id number] Closed 01/25/2020 01/24/2021 1 1 Encounter Details Date Type Department Care Team Description 04/25/2020 Office Visit Department of Jason Billings, Focal Com plex Partial Neurology in [place], [facility] Epilepsy Not [place], [place] Intractable Without [address] Status Epilepticus [place], [place] (HCC) (Primary Dx) [id number] Social History Tobacco Use Types Packs/Day Years Used Date Smoking Tobacco: Never Smokeless Tobacco: Never Alcohol Habits Answer Date Recorded How often [...] or relatives? How often do you attend mandaeism or More than 4 times per year 03/27/2021 restorationist services? Do you belong to any clubs or No 03/27/2021 organizations such as mandaeism groups, unions, fraPrivia or athletic groups, or school groups? How [...] place to sleep or slept in a fci (including now)? Sex Assigned at Date Recorded Female 03/27/2021 5:56 PM [employer] documented as of this encounter Last Filed Vital Signs Vital Sign Reading Time Taken Comments Blood Pressure - - Pulse - - Temperature - - Respiratory Rate - - Oxygen Saturation - - Inhaled Oxygen Concentration - - Weight 56.5 kg (124 lb 9 oz) 04/25/2020 4:11 PM CDT Height 155.1 cm (5' 1.06) 04/25/2020 4:11 PM CDT with shoes Body Mass Index 23.49 04/25/2020 4:11 PM CDT documented in this encounter Patient Instructions Patient InstructionsJason Billings M.D., M.P.[facility]. - 04/25/2020 4:00 PM CDT Your seizures appear to be controlled on lamotrigine. Please continue taking 100 mg twice a day. For your family, in terms of emergencies, please always call EMS if the seizure lasts for >5 minutes, if you are injured (for any seizure length), or it takes a longer time to return to baseline. Ifthe seizure appears different than the past you should always call EMS. If the seizure is very brief, look like the typical seizures, and you come back to baseline quickly,it may be okay to not call EMS and call us immediately for quick follow-up. However if you are worried please call EMS. documented in this encounter Progress Notes Jason Billings M.D., [facility]. - 04/25/2020 4:00 PM CDT SUBJECTIVE Referring Provider: Jason Billings M.D., M.P.[facility]. CHIEF COMPLAINT / REASON FOR VISIT Alethea Lambert is a 74 y.o. right-handed female who presents for evaluation of seizure. 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 Exam provided through the aid of time study statistician. Patient's granddaughter, who is bilingual, gives additional collateral. At last visit we titrated Lamotrigine to 100 mg BID (see 01/25/20 note for titration details) and obtained lamotrigine level 6 weeks later (theraputic at 3.1). HISTORY OF PRESENT ILLNESS Patient was in her normal state until [...] voice tremor that is stammering, and the supply and distribution manager had some difficult understanding her. Interval History (04/25/20): She has had no subsequent seizures. She [...] her much. She has no other complaints. Onset: November 2019 Seizure Description: See HPI Current Seizure Control: Two lifetime seizures Risk factors: Quesionable stroke hx Epilepsy Type: Unknown Epilepsy Syndrome: No defined syndrome Etiology: Unknown Prior medications: N/A Current medications: Keppra 500 mg BID Side effects: She has had some issues with reflux and has a bad taste all day after taking keppra. She does endorse compliance. Other treatments: N/A Prior workup: MRI: MRI brain w/o contrast 11/24/19: No acute infarct or intracranial abnormality. No edema or other abnormality involving hippocampal sclerosis. Scattered presumed chronic microvascular ischemic changes/senescent gliosis within the supratentorial white matter. MRI brain 01/19/20 ([place]): FINDINGS: Mild asymmetric increase in T2 signal [...] assessment was performed on an independent computer room service server using [employer] software. The clinical indication for performing the post-processing was seizure . Review of the billing and quality technician images demonstrates good/poor segmentation of the hippocampi. [...] Knowledge - Fund of knowledge is appropriate Cranial Nerves: II -Attends to all visual freeman. Visual acuity is grossly normal. PERRLA. III, IV, - EOMI, without nystagmus V - Intact to light touch in all distributions VII -Facial symmetry VIII - Hearing is intact to voice and finger rub bilaterally IX/X - Palate elevates symmetrically XI - Shoulder shrug and Head turning is symmetric and strong XII - Tongue protrudes in the midline Motor: Bulk - Normal Tone - Normal Strength - 5/5 in all proximal and distal muscle groups Pronator Drift - No drift in BUE Abnormal Movements - Subtle tremor in b/l arms, L>R Sensation: intact to light touch x 4 Coordination: No ataxia or dysmetria on [id number] and [id number] bilaterally. Normal finger tapping and other EUGENIA's are intact. Reflexes (R/L): Biceps 2+/2+, brachioradialsis 2+/2+, triceps 2+/2+; patellar 2+/2+, achilles 2+/2+.Toes downgoing to plantar stimulation bilaterally. Gait: Normal Gait and Station, Arm swing is of normal amplitude and symmetric In summary, 74 y.o. female with two impaired awareness events out of sleep associated with oral automatisms, in the context of T2 signal increase in hippocampus on the left and indeterminant findings on EEG. This is consistent with a focal epilepsy. She has been responsive to lamotrigine without any is sues. We can continue lamotrigine 100 mg BID and follow up in six months. Emergency department return precautions were discussed in the AVS. With regards to her tremor, this appears to have improved. She did endorse that it particularly is notable with anxiety and it is possible that the mood stabilizing effect of lamotrigine helped with this. ASSESSMENT / PLAN 1. Seizure (HCC) - Return in 6 months - Lamotrigine Level; Future PATIENT EDUCATION The impression and treatment plan [...] and/or coordination of care as described above. Answers for HPI/ROS submitted by the patient on 04/25/2020 No general issues: Yes No eye issues: Yes No ENT issues: Yes No heart issues: Yes Coughing up mucus (phlegm): Yes No GI issues: Yes No muscle/bone issues: Yes No skin issues: Yes Headache: Yes No neurologic issues: Yes Loud snoring: Yes No mental health issues: Yes No blood/lymph issues: Yes No urinary/reproductive issues: Yes documented in this encounter Plan of Treatment Scheduled Referrals Name Type Priority Associated Diagnoses Order [facility] Neurology office Outpatient Referral Routine Expe cted: visit (clinic) 10/26/2020 (Approximate), Expires: 04/26/2023 documented as of this encounter Visit Diagnoses Diagnosis 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
--- OUTSIDE RECORDS SUMMARY | 2021-12-17 08:17 | XMS_ITS | Encounter Summary ---
:1945 Author Organization [facility] Address [address] [place] [address] Care Team Providers Name Role Phone Elsewhere, Pcp Primary Care Provider Unavailable Reason for Referral MRI/CAT/PET Scan (Routine) - Closed Specialty Diagnoses / Procedures Referred By Contact Refer red To Contact Radiology Diagnoses Dysphagia Jason Billings M.D., [facility] Procedures MR Neck Soft Tissue without and with IV Contrast M.P.H. 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 Referral ID Status Reason Start Date Expiration Date Visits Requ ested Visits Authorized [id number] Closed 04/01/2021 04/01/2022 1 1 ATIENT COORDINATOR Outpatient (Routine) - Closed Specialty Diagnoses / Procedures Referred By Contact Refer red To Contact Otorhinolaryngology Diagnoses Pulsatile Tinnitus Right Ear Jason Billings [facility] Shoaib, M.P.H. Referral ID Status Reason Start Date Expiration Date Visits Requ ested Visits Authorized [id number] Closed 04/01/2021 04/01/2022 1 1 ATIENT COORDINATOR MRI/CAT/PET Scan (Routine) - Closed Specialty Diagnoses / Procedures Referred By Contact Refer red To Contact Radiology Diagnoses Pulsatile Tinnitus Right Ear Jason Billings M.D., [facility] Procedures MR Brain without and with IV Contrast M.P.H. Referral ID Status Reason Start Date Expiration Date Visits Requ ested Visits Authorized [id number] Closed 04/01/2021 04/01/2022 1 1 ATIENT COORDINATOR Reason for Visit Outpatient (Routine) - Closed Specialty Diagnoses / Procedures Referred By Contact Refer red To Contact Neurology Jason Billings M.D., M.P.H. 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 Pulsatile Tinni tus Right Ear; [place], [place] Dysphagia [address] [place] [address] Social History Tobacco Use Types Packs/Day Years [...] or relatives? How often do you attend rastafari or More than 4 times per year 03/27/2021 sabianism services? Do you belong to any clubs or No 03/27/2021 organizations such as rastafari groups, unions, fraternal or athletic groups, or [...] place to sleep or slept in a long term (including now)? Education Answer Date Recorded What is the highest level of school you have completed or th e 3rd grade 03/27/2021 highest degree you have received? Sex Assigned at Date Recorded Female 03/27/2021 5:56 PM OUTPATIENT COORDINATOR documented as of this encounter Progress Notes Jason Billings M.D., M.P.H. - 04/01/2021 2:00 PM CST SUBJECTIVE Referring Provider: Jason Billings M.D., M.P.H. Consult conducted via real-time audio technology by Jason Billings M.D., M.P.H. in [facility] to the patient in Patient's Home . Interview was performed with physician/ophthalmologist Allison Conn. Video was unavailable. CHIEF COMPLAINT / REASON FOR VISIT Alethea Lambert is a 75 y.o. right-handed female who presents for follow up of seizure.She has a past medical history of HTN and reported remote stroke with minimal residual right hemiparesis and dysphagia, which is disputed (see HPI). Exam provided through the aid of personal financial planner.Patient's granddaughter, who is bilingual, gives additional collateral. [...] voice tremor that is stammering, and the shelter director had some difficult understanding her. Follow up [...] her much. She has no other complaints. Today (04/01/21): At last visit we continued lamotrigine 100 [...] the supratentorial white matter. MRI brain 01/19/20 ([place]): FINDINGS: Mild asymmetric increase in T2 signal [...] assessment was performed on an independent computer linux server administrator using Advanced Image EnhancementQuant software. The clinical indication for performing the post-processing was seizure . Review of the corporate quality assurance manager images demonstrates good/poor segmentation of the hippocampi. [...] recorded in the EPIC record. PHYSICAL EXAM Unable to examine due to video In summary, 75 y.o. female with two [...] neurology in 1 year, sooner if needed. 1. Pulsatile Tinnitus Right Ear - MR Brain without and with IV Contrast; Future - Otorhinolaryngology - Laryngology and voice disorders consult (clinic); Future 2. 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 Dysphagia - MR Neck Soft Tissue without and with IV Contrast; Future PATIENT EDUCATION The impression and treatment [...] BILLING Total time spent with patient/family was 45 minutes, greater than 50% of which was spent in counseling and discussion and/or coordination of care as described above. ATIENT COORDINATOR documented in this encounter Plan of Treatment Scheduled Referrals Name Type Priority Associated Order Schedule Diagnoses Otorhinolaryngology - Outpatient Routine Pulsatile Tinnitus Expected: Laryngology and voice Referral Right Ear 2021 disorders consult (clinic) ( Approximate), Expires: 07/06/2022 Neurology office visit Outpatient Routine Focal Complex Expe cted: (clinic) Referral Partial Epilepsy 06/19/2021 Not Intractable (Approximate ), Without Status Expires: Epilepticus (HCC) 07/06/2022 documented as of this encounter Results MR Neck Soft Tissue without and with IV Contrast (06/19/2021 2:26 PM CDT) Anatomical Region Laterality Modality Neck, Neuroradiology RST LOS, Neuroradiology [facility], N/A Magnetic Resonance Neuroradiology [facility] Specimen (Source) Anatomical Collection Method Collection Time [...] Jason Billings M.D., M.P.H. IMG MRI PROCEDURES MR Brain without and with [...] Jason Billings M.D., M.P.H. IM MRI PROCEDURES documented in this encounter Visit Diagnoses Diagnosis Focal Complex Partial Epilepsy Not Intra ctable Without Status Epilepticus (HCC) - Primary Pulsatile Tinnitus Right Ear Dysphagia Pulsatile Tinnitus Right Ear Dysphagia documented in this encounter Care Teams Wet Washer Machine Relationship Specialty Start Date End Date Elsewhere, Pcp PCP - General Internal Medicine 03/29/21 documented as of this encounter
--- OUTSIDE RECORDS SUMMARY | 2021-12-17 08:17 | XMS_ITS | Encounter Summary ---
:1945 Author Organization [facility] Address [address] [place] [address] Care Team Providers Name Role Phone Elsewhere, Pcp Primary Care Provider Unavailable Reason for Referral Outpatient (Routine) - Authorized Specialty Diagnoses / Referred By Referred To Cont act Procedures Contact Gastroenterology and Diagnoses Dysphagia Jason Billings, [facility] Hepatology Shoaib, M.P.H. Referral ID Status Reason Start Date Expiration Date Visits V isits Requested Authorized [id number] Authorized 06/26/2021 06/26/2022 1 1 Reason for Visit Reason Comments referral Encounter Details Date Type Department Care Team Description 06/25/2021 Clinical Communication Department of Jason Billings, referral Neurology in [place], M.P.H. [place], [place] [address] [place] [address] Social History Tobacco Use Types Packs/Day Years [...] or relatives? How often do you attend advent or More than 4 times per year 03/27/2021 worship services? 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 - 06/26/2021 8:54 AM CDT Placed order for esophageal GI specialist regarding the hiatal hernia as I had discussed with Ms. Cardoso and Suzi Vu, and not throat specialist. Telephone Encounter - Janet Britton - 06/25/2021 11:42 AM CDT Patient's granddaughter, Nora, calls to ask that you refer the patient to a throat specialist. documented in this encounter Plan of Treatment Scheduled Referrals Name Type Priority Associated Order Schedule Diagnoses Gastroenterology and Outpatient Routine Dysphagia Expecte d: Hepatology - Esophageal Referral 06/09 consult (clinic) (Approximat e), Expires: 09/26/2022 documented as of this encounter Visit Diagnoses Diagnosis Dysphagia - Primary Focal Complex Partial Epilepsy Not Intra ctable Without Status Epilepticus (HCC) documented in this encounter Care Teams Cattery Operator Relationship Specialty Start Date End Date Elsewhere, Pcp PCP - General Internal Medicine 03/29/21 documented as of this encounter
--- OUTSIDE RECORDS SUMMARY | 2021-12-17 08:17 | XMS_ITS | Encounter Summary ---
:1945 Author Organization [facility] Address [address] [place] [id number] Care Team Providers Name Role Phone Elsewhere, Pcp Primary Care Provider Unavailable Encounter Details Date Type Department Care Team Description 06/24/2021 Diagnostic Department of Jason Billings M.D., M.P .H. Tinnitus Right; Otorhinolaryngology in Jeanne Haro Au.D. [address] [place] [address] Loss Hearing Sensorineural Bilateral [place], [place] Gris Tapia [address] [place] [phone] Social History Tobacco Use Types Packs/Day [...] or relatives? How often do you attend yazidism or More than 4 times per year 03/27/2021 oriental orthodox services? Do you belong to any clubs or No 03/27/2021 organizations such as yazidism groups, unions, fraternal or athletic groups, or [...] place to sleep or slept in a retirement (including now)? Education Answer Date Recorded What is the highest level of school you have completed or th e 3rd grade 03/27/2021 highest degree you have received? 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 - 06/24/2021 9:56 AM CDT SUBJECTIVE CHIEF COMPLAINT / REASON FOR VISIT Audiological Evaluation HISTORY OF PRESENT COMPLAINT Alethea Lambert is a 75 year old accompanied today by her granddaughter, who also served as her surgical endoscopist. A [facility] surgical endoscopist was offered and declined. The patient does not have mohsen hearing concerns and feels that she hears very well. She has had past right ear infections that sound more like outer ear than middle ear infections, though this is not entirely clear. She also reports itching/irritation in that ear quite frequently. She has some tinnitus that she describes as wind noise that comes primarily from the right ear. Patient denies aural fullness and otalgia. OBJECTIVE See Audiological Evaluation Form ASSESSMENT/PLAN ?? In each ear, normal to borderline normal hearing 250-1000 Hz, sloping to mild sensorineural hearing loss at 5030-4294 Hz sloping to moderate at 8000 Hz. Word recognition could not be assessed. ?? Tympanometry within normal, bilaterally. CARE PLAN 1) Re-evaluate hearing in 2 years or sooner should concerns arise. 2) Discussed hearing aid consultation, but patient is not interested in pursuing amplification at this time. 3) Hearing protection in noise. documented in this encounter Plan of Treatment Not on filedocumented as of this encounter Procedures Procedure Name Priority Date/Time Associated Diagnosis Comme nts AUDIOLOGY EVALUATION Routine 06/24/2021 12:00 AM CDT Tinnitus Right documented in this encounter Results Audiology evaluation (06/24/2021 12:00 AM CDT) Specimen (Source) Anatomical Location Collection Method / Collectio n Time Received Time / Laterality Volume 06/24/2021 Narrative This result has an attachment that is no t available. Jason Billings M.D., M.P.H. AUDIOLOGY SERVICES [facility] Performing Organization Address City/State/ZIP Code Phon e Number AUDIOLOGY AND AHD documented in this encounter Visit Diagnoses Diagnosis Tinnitus Right Loss Hearing Sensorineural Bilateral documented in this encounter Care Teams Diaper Machine Tender Relationship Specialty Start Date End Date Elsewhere, Pcp PCP - General Internal Medicine 03/29/21 documented as of this encounter
--- OUTSIDE RECORDS SUMMARY | 2021-12-17 08:17 | XMS_ITS | Encounter Summary ---
:1945 Author Organization [facility] Address [address] [place] [address] Care Team Providers Name Role Phone Elsewhere, Pcp Primary Care Provider Unavailable Reason for Referral Outpatient (Routine) - Closed Specialty Diagnoses / Procedures Referred By Contact Refer red To Contact Diagnoses Dysphagia Jason Billings M.D., [facility] Procedures FL Swallow Function with Video and Speech or OT M.P.H. Referral ID Status Reason Start Date Expiration Date Visits Requ ested Visits Authorized [id number] Closed 04/08/2021 04/08/2022 1 1 Reason for Visit Outpatient (Routine) - Closed Specialty Diagnoses / Procedures Referred By Contact Refer red To Contact Diagnoses Dysphagia Jason Billings M.D., [facility] Procedures FL Esophagram Double Contrast FL Esophagram Single Contrast M.P.H. Referral ID Status Reason Start Date Expiration Date Visits Requ ested Visits Authorized [id number] Closed 04/08/2021 04/08/2022 1 1 Encounter Details Date Type Department Care Team Description 06/19/2021 Hospital Encounter Department of Jason Billings M.D ., M.P.H. Dysphagia Radiology, Baker Tori Xiong M.A., CCC-UNDERTAKER ASSISTANT [address] [place] [phone] [facility], in [place], [place] [address] [place] [address] Social History Tobacco Use Types Packs/Day Years [...] More than 4 times per year 03/27/2021 synagogue services? Do you belong to any clubs [...] or slept in a fci (including now)? Education Answer Date Recorded What is the highest level of school you have completed or th e 3rd grade 03/27/2021 highest degree you have received? 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 FL SWALLOW RAD - Routine 06/19/2021 10:35 Dysphagia Results fo r this FUNCTION WITH (most inpatients AM CDT procedure are in VIDEO AND SPEECH and all the results OR OT FOR RST outpatients) section. documented in this encounter Results FL Esophagram Double Contrast (06/19/2021 10:35 AM CDT) Anatomical Region Laterality Modality Gastro Intestinal, Abdominal RST LOS, Abdominal ARZ Digital Radiography LOS, Abdominal FLA LOS Specimen [...] Billings M.D., M.P.H. IMG FLUOROSCOPY PROCEDURE S FL Swallow Function with Video and Speech [...] documented in this encounter Visit Diagnoses Diagnosis Dysphagia documented in this encounter Administered Medications Inactive Administered Medications - up to 3 most recent administrations Medication Order MAR Action Action Date Dose Rate Site barium 40 % (w/v) suspension Given 06/19/2021 10:36 AM CDT 20 mL oral, Code/trauma/sedation medication, Starting on Thu06/19/21 at 1036 barium 60 % (w/v) suspension (LIQUID Given 06/19/2021 10:36 AM C DT 175 mL E-Z-PAQUE) oral, Code/trauma/sedation medication, Starting on Thu06/19/21 at 1036 barium 700 mg tablet (E-Z-DISK) Given 06/19/2021 10:36 AM CDT 700 mg oral, Code/trauma/sedation medication, Starting on Thu06/19/21 at 1036 barium 81 % (w/w) oral powder for suspension Given 12/2021 10:36 AM CDT 50 mL (VARIBAR THIN LIQUID) oral, Code/trauma/sedation medication, Starting on Thu06/19/21 at 1036 barium 98 % oral powder for suspension Given 06/19/2021 10:36 AM CDT 135 mL (E-Z-HD) oral, Code/trauma/sedation medication, Starting on Thu06/19/21 at 1036 sodium bicarbonate-citric acid-simethicone Given 06/19 10:36 AM CDT 1 packet effervescent packet (E-Z -GAS) oral, Code/trauma/sedation medication, Starting on Thu06/19/21 at 1036 documented in this encounter Care Teams Military Source Operations Officer Relationship Specialty Start Date End Date Elsewhere, Pcp PCP - General Internal Medicine 03/29/21 documented as of this encounter
--- OUTSIDE RECORDS SUMMARY | 2021-12-17 08:17 | XMS_ITS | Encounter Summary ---
:1945 Author Organization [facility] Address [address] [place] [address] Care Team Providers Name Role Phone Unavailable Primary Care Provider Unavailable Reason for Visit Reason Comments Med Refill Encounter Details Date Type Department Care Team Description 02/18/2021 Refill Department of Neurology in Jason Billings M.D., Med Refill [place], [place] M.P.H. [address] [place] [phone] Social History Tobacco Use Types Packs/Day [...] or relatives? How often do you attend sikh or More than 4 times per year 03/27/2021 latter-day services? Do you belong to any clubs or No 03/27/2021 organizations such as sikh groups, unions, fraternal or athletic groups, or [...] or slept in a mcc (including now)? 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
--- OUTSIDE RECORDS SUMMARY | 2021-12-17 08:17 | XMS_ITS | Encounter Summary ---
:1945 Author Organization [facility] Address [address] [place] [address] Care Team Providers Name Role Phone Elsewhere, Pcp Primary Care Provider Unavailable Reason for Visit Reason Comments Pre-visit Intake Encounter Details Date Type Department Care Team Description 03/29/2021 Clinical Communication Visit Review in Pr e-visit Intake [place], [place] [address] [place] [address] Social History Tobacco Use Types Packs/Day Years [...] or relatives? How often do you attend hoahaoism or More than 4 times per year 03/27/2021 spiritism services? 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
--- OUTSIDE RECORDS SUMMARY | 2021-12-17 08:17 | XMS_ITS | Encounter Summary ---
:1945 Author Organization [facility] Address [address] [place] [address] Care Team Providers Name Role Phone Elsewhere, Pcp Primary Care Provider Unavailable Encounter Details Date Type Department Care Team Description 06/19/2021 Clinical Communication Department of Jason Billings Neurology in M.DJoan, M.P.H. [place], [place] [address] [place] [address] Social History Tobacco Use Types Packs/Day Years [...] or relatives? How often do you attend quaker or More than 4 times per year 03/27/2021 protestant services? 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 - 06/19/2021 5:08 PM CDT I spoke to Ms. Cardoso through her granddaughter Nora Vu providing translation. 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 She had an ear infection some months ago. She was febrile at times some months ago but has not been febrile recently, nor has there been nausea or vomiting. There was otorrhea some months ago. However,she still is having ear pain, retro- orbital pain, and right facial pain. She does not have restriction of her eye movements. While the clinical findings are somewhat equivocal, I am concerned there is an active infection. I would recommend evaluation in the emergency department and temporal bone CT. I sent the MRI report through the portal to Ms. Vu. I have also called the [facility] [place] [facility] ED ([phone]) to let them know she is coming, and recommendations for temporal bone CT and ENT/IDinput as to whether she would need surgical intervention or IV antibiotics. documented in this encounter Plan of Treatment Not on filedocumented as of this encounter Visit Diagnoses Not on filedocumented in this encounter Care Teams Overedge Machine Operator Relationship Specialty Start Date End Date Elsewhere, Pcp PCP - General Internal Medicine 03/29/21 documented as of this encounter
--- OUTSIDE RECORDS SUMMARY | 2021-12-17 08:17 | XMS_ITS | Encounter Summary ---
:1945 Author Organization [facility] Address [address] [place] [address] Care Team Providers Name Role Phone Elsewhere, Pcp Primary Care Provider Unavailable Encounter Details Date Type Department Care Team Description 06/17/2021 Lab Department of [facility] Jason Billings Co ntact With And (Suspected) Exposure To COVID-19; Medicine [place], M[facility]P[place]. [facility] er For Preprocedural Laboratory Examination (COVID-19) [address] [phone] Social History Tobacco Use Types Packs/Day Years [...] or relatives? How often do you attend latter-day or More than 4 times per year 03/27/2021 jainism services? 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 Preprocedural Laboratory Examination (COVID-19) documented in this encounter Results SARS Coronavirus-2 RNA, V Asymptomatic (06/17/2021 3:26 PM CDT) [facility] Method Time Signature SARS-CoV-2 Swab, 06/17/2021 MKTO Specimen Nasopharynx 9:45 PM CDT Source SARS CoV-2 Undetected Undetected 06/17/2021 MKTO RNA, TMA 9:45 PM CDT Comment: SARS-CoV-2 RNA absent. This result does not rule out COVID-19 in the patient, as the sensitivity of the test depends o n the timing of the specimen collection and the quality of the specim en. Result should be correlated with patient's history and clinical presentat ion. ----ADDITIONAL INFORMATION---- This molecular amplification test was pe rformed using the Aptima SARS-CoV-2 assay ([employer] on the Lique[place] tem under emergency use authorization (EUA) by the U.S. Food and Drug Administ ration. Fact sheets for this EUA assay can be fo und at the following links: For Healthcare Providers: https://www.fd a.gov/media/458796/download For Patients: https://www.fda.gov/media/ 628889/download Specimen Anatomical Collection Method Collection Time Receive d Time (Source) Location / / Volume Laterality Varies 06/17/2021 3:26 PM 2 4:35 (Nasopharynx) CDT PM CDT Jason Billings M.D., M.P.H. LAB MICROBIOLOGY - GENERA L ORDERABLES Performing Organization Address City/State/ZIP Code Phon e Number [facility]- [address] [place] [address] [place] [address] System in [place] [address] [place] [address] documented in this encounter Visit Diagnoses Diagnosis Contact With And (Suspected) Exposure To COVID-19 Encounter For Preprocedural Laboratory E xamination (COVID-19) documented in this encounter Care Teams Marketing Recruiter Relationship Specialty Start Date End Date Elsewhere, Pcp PCP - General Internal Medicine 03/29/21 documented as of this encounter
--- OUTSIDE RECORDS SUMMARY | 2021-12-17 08:17 | XMS_ITS | Encounter Summary ---
:1945 Author Organization [facility] Address [address] [place] [address] Care Team Providers Name Role Phone Elsewhere, Pcp Primary Care Provider Unavailable Encounter Details Date Type Department Care Team Description 06/24/2021 Ancillary Procedure Department of Otorhinolaryngology Social History Tobacco Use Types Packs/Day Years [...] or relatives? How often do you attend congregation or More than 4 times per year 03/27/2021 buddhism services? Do you belong to any clubs or No 03/27/2021 organizations such as congregation groups, unions, fraternal or athletic groups, or [...] minutes do you engage in exercise at is 30 min 03/27/2021 level? Stress Answer [...] place to sleep or slept in a assisted (including now)? Education Answer Date Recorded What is the highest level of school you have completed or th e 3rd grade 03/27/2021 highest degree you have received? 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 documented in this encounter Results Direct Laryngoscopy-Otorhinolaryngology Image Exam (06/24/2021 2:52 PM CDT) Specimen (Source) Anatomical Collection Method Collection Time Re ceived Time Location / / Volume Laterality 06/24/2021 3:00 PM CDT Narrative [facility] - 06/24/2021 2:52 PM CDT This order has been created and auto-finalized to support the import of images acquired without order. The clini imelda documentation to support these images can be found on the encounter jordi t produced images. Provider Not In System IMG NON RAD IMAGING PROCEDUR ES Performing Organization Address City/State/ZIP Code Phon e Number [facility] NA documented in this encounter Visit Diagnoses Not on filedocumented in this encounter Care Teams Automotive Electrician Relationship Specialty Start Date End Date Elsewhere, Pcp PCP - General Internal Medicine 03/29/21 documented as of this encounter
--- OUTSIDE RECORDS SUMMARY | 2021-12-17 08:17 | XMS_ITS | Encounter Summary ---
:1945 Author Organization [facility] Address [address] [place] [address] Care Team Providers Name Role Phone Elsewhere, Pcp Primary Care Provider Unavailable Encounter Details Date Type Department Care Team Description 06/25/2021 Clinical Communication Department of Jason Billings Neurology in [place], M.P.H. [place], [place] [address] [place] [address] Social History Tobacco Use Types Packs/Day Years [...] or relatives? How often do you attend christianity or More than 4 times per year 03/27/2021 anabaptism services? 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 - 06/25/2021 11:16 AM CDT Spoke to patient's granddaughter following up with her ENT visit. They thought that her vocal tremormay be playing a role. There is also the hiatal hernia on the swallow study which did not appear to be impeding swallow function. I offered the possibility of GI consult to patient and granddaughter. Her granddaughter told me theywould discuss this and let us know through the portal. All questions answered. documented in this encounter Plan of Treatment Not on filedocumented as of this encounter Visit Diagnoses Not on filedocumented in this encounter Care Teams Cvt Rn Relationship Specialty Start Date End Date Elsewhere, Pcp PCP - General Internal Medicine 03/29/21 documented as of this encounter
--- OUTSIDE RECORDS SUMMARY | 2021-12-17 08:17 | XMS_ITS | Encounter Summary ---
:1945 Author Organization [facility] Address [address] [place] [address] Care Team Providers Name Role Phone Elsewhere, Pcp Primary Care Provider Unavailable Reason for Referral Outpatient (Routine) - Authorized Specialty Diagnoses / Procedures Referred By Contact Refer red To Contact Diagnoses Pulsatile Tinnitus Right Ear Dc Beard, Chelsi, [facility] Procedures Laryngoscopy M.S. [address] [place], [place] [address] Referral ID Status Reason Start Date Expiration Date Visits V isits Requested Authorized [id number] Authorized 06/24/2021 06/24/2022 1 1 Reason for Visit Outpatient (Routine) - Closed Specialty Diagnoses / Procedures Referred By Contact Refer red To Contact Otorhinolaryngology Diagnoses Pulsatile Tinnitus Right Ear Jason Billings [facility] Funmi., M.P.H. Referral ID Status Reason Start Date Expiration Date Visits Requ ested Visits Authorized [id number] Closed 04/01/2021 04/01/2022 1 1 Encounter Details Date Type Department Care Team Description 06/24/2021 Comprehensive Visit Department of Ovi Beard Otorhinolaryngology in [place], [place] Chelsi, Ear [address] [facility] [place] [address] [address] [phone] [place] [address] Social History Tobacco Use Types Packs/Day Years [...] or relatives? How often do you attend anabaptism or More than 4 times per year 03/27/2021 gnosticism services? Do you belong to any clubs or No 03/27/2021 organizations such as anabaptism groups, unions, fraternal or athletic groups, or [...] place to sleep or slept in a [facility] (including now)? Education Answer Date Recorded What is the highest level of school you have completed or th e 3rd grade 03/27/2021 highest degree you have received? 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 - 06/24/2021 2:30 PM CDTAssociated Order(s): Laryngoscopy CHIEF COMPLAINT/PURPOSE OF VISIT: Dysphagia Pulsatile tinnitus Referring Provider Jason Billings M.D., M.P.H. HISTORY OF PRESENT ILLNESS: Alethea Lambert is a very pleasant 75 y.o. female who comes referred from [facility] for ENT evaluation of the above complaints. The patient was seen by the referring provider on 04/01/2021 via telemedicine encounter in regards to history of seizures, hypertension, and remote history of a stroke. As a part of her consultation, she reported chronic subacute right ear pain, dysphagia, and previous vocal fold abnormalities. Given the above complaints, today's ENT evaluation was arranged. Dysphagia Since a patient's previous stroke, she has had some difficulty with swallowing. She describes increased effort of swallowing, needing to use liquid to get a bolus of food past down. Occasionally, she feels that food gets stuck in her throat. She coughs and chokes intermittently during the day, noting this occurs less if she drinks water during mealtimes. She denies a history of odynophagia or ear pain with swallowing. Previously, the patient has been followed by ENT locally, and physical examination was unrevealing. Details are limited, although it sounds like vocal fold dysfunction was the explanation that was offered for her swallowing trouble. A video swallow study was completed on 06/19/2021, and was found to be within functional limits. There was one event of mild flash laryngeal penetration with thin liquids, with otherwise no evidence ofpenetration or aspiration. There is a small sliding hiatal hernia on the esophagram. An MRI of the soft tissues of the neck was completed on 06/19/2021, and was normal, not demonstrating any specific abnormality to account for dysphagia. Also since the patient stroke, she reports difficulty with dysphonia. She was unable to characterizeher hoarseness today, although notes the symptom is been constant, without significant progression with time. Pulsatile Tinnitus Initially, the patient did not report a history of pulsatile tinnitus. Upon specific questioning, she reports a pulsation in her head. She was clear and saying this is something she feels, generalized throughout the entire head. She has actually never had pulsatile tinnitus, noting she does not hear her heartbeat. Occasionally, she reports tinnitus, noting a wind-like sound in the right and left ear. An MRI of the brain was completed on 06/19/2021, revealing an opacified right petrous apex and moderate right mastoid effusion. There are no other acute intracranial findings, nor were there abnormalities noted on an MRI of the neck. She followed up locally in the emergency department to exclude petrous apicitis, and a CT scan of the temporal bone was normal. An audiogram was completed earlier today, and revealed: ?? In each ear, normal to borderline normal hearing 250-1000 Hz, sloping to mild sensorineural hearing loss at 6225-6672 Hz sloping to moderate at 8000 Hz. Word recognition could not be assessed. ?? Tympanometry within normal, bilaterally. ROS: Pertinent items are noted in HPI; all other review of systems were negative. CURRENT MEDICATIONS: Reviewed and updated in the EMR. ALLERGIES: Reviewed and updated in the EMR. PAST MEDICAL HISTORY: Reviewed and updated in the EMR. SURGICAL HISTORY: Reviewed and updated in the EMR. Family History: Reviewed and updated in the EMR. Social History: Social History Tobacco Use ??? Smoking status: Never Smoker ??? Smokeless tobacco: Never Used Vaping Use ??? Vaping Use: never used Substance Use Topics ??? Alcohol use: Never ??? Drug use: Never PHYSICAL EXAM: General: Awake, alert, and oriented times three. In no acute distress. Head: Normocephalic, atraumatic. Hair and scalp normal. Face: Symmetric. House-Brackmann 1/6 bilaterally. Sinuses non-tender to palpation. Eyes: Pupils equal, round, and reactive to light bilaterally. Ears: Normal shaped pinna bilaterally. External auditory canals are clear. Tympanic membranes are intact with well-aerated middle ear spaces bilaterally. Mastoid area is non-tender, non-erythematous, and non-fluctuant bilaterally. Nose: The nares are patent. Nasal mucosa is pink and moist. Nasal cavities are clear without masses or discharge. No polyps, septal deviation, or mucopurulence on anterior rhinoscopy. Mouth: Dentures removed. Without trismus. Tongue is midline and mobile. Oral and buccal mucosa is pink and moist. Tonsils are non-erythematous and without exudates bilaterally. Uvula is midline and there is no asymmetry of the palatal arch. Floor of mouth is soft and flat, with no mass on bimanual palpation; somewhat difficult oropharyngeal exam due to poor tolerance/compliance with the exam. Neck: Supple, normal range of motion. Trachea is midline. No palpable cervical lymphadenopathy or masses bilaterally. Normal carotid pulses bilaterally. Thyroid is non-tender and without palpable nodules. Neurologic: significant raspy, choppy phonation noted. Decreased ability to sustain phonation. She has a tremor, which can sometimes be heard in the voice. 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 Pulmonary: Patient has non-labored breathing. No audible stridor. Skin: [place] and dry. Psych: Appropriate mood and affect. Laryngoscopy Date/Time: 06/24/2021 3:08 PM Performed by: Dc Beard P.A.-C., M.S. Authorized by: Dc Beard P.A.-C., M.S. PROCEDURE NOTE Procedure: Flexible laryngoscopy, fiberoptic, diagnostic Details: Verbal informed consent was obtained. After topical decongestion and anesthesia with 2% lidocaine and 0.5% phenylephrine, the flexible fiberoptic scope was inserted into the right side. The nasal cavity was unremarkable. The nasopharynx, oropharynx, and hypopharynx appeared normal. At the level of the larynx, the epiglottis, false vocal folds, true vocal folds, arytenoids, and pyriform sinuses appearnormal without masses or lesions. There is abnormal movement of the vocal folds, although it is difficult to characterize this. She had a hard time with coughing and choking during the scope exam. At rest, and with phonation, there is somewhat spasmodic movements of the vocal folds, arytenoids, and base of tongue. It is not clear whether not this was a reaction to having the scope performed, or reflective of her typical resting state. The patient tolerated the procedure well. ASSESSMENT/PLAN: #1 Dysphagia #2 Hoarseness The patient comes referred for ENT evaluation of dysphagia. She also reports a history of chronic dysphonia. Both of these problems have been present since a stroke which occurred several years ago. A video swallow study revealed oropharyngeal swallow within functional limits. Her examination today from a laryngeal standpoint does not reveal any structural abnormalities to account for dysphagia. 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 We discussed that the underlying spasmodic dysphonia or vocal tremor could be a contributing factor to dysphagia. The history of stroke sounds to be a contributing factor as well. I am reassured that an MRI of the neck did not reveal any structural abnormalities. She tolerates a normal diet, and a video swallow study did not reveal evidence of aspiration. Recommend swallow therapy locally. For her voice, I offered a laryngology consultation. She may benefit from stroboscopy and COMMERCIAL LINES ACCOUNT ASSISTANT intervention. She was not interested in either of these visits today. #3 Head pulsations In the referral notes, there was some mention of pulsatile tinnitus. After further discussion with the patient, she does not have pulsatile tinnitus, only a feeling of a pulsation in her head. Given this, I recommended continued follow-up with Neurology. An MRI of the brain was unrevealing. She does report some non-pulsatile tinnitus, noting a wind-like noise in the ears. We reviewed her hearing test, which reveals bilateral sensorineural hearing loss. Discussed difficulty of known etiology of tinnitus and probable relationship to hearing loss. Discussed options for further evaluation aswell as lack of significant and effective treatment options. Discussed use of background noise, tinnitus retraining therapy, maskers, Neuromonic device and medications that have been utilized. Reassurance provided and discussed brain habituation. Questions were entertained to the best my ability. The patient will contact me with questions or concerns that arise in the future. The patient understands and agrees to the above care plan. documented in this encounter Plan of Treatment Not on filedocumented as of this encounter Procedures Procedure Name Priority Date/Time Associated Diagnosis Comme nts LARYNGOSCOPY Routine 06/24/2021 3:08 PM Pulsatile Tinnitus Res ults for this CDT Right Ear procedure are i n the results section . documented in this encounter Results Laryngoscopy (06/24/2021 3:08 PM CDT) Narrative Dc Beard P.A.-C., M.S. - 022 3:08 PM CDT Dc Beard P.A.-C., M.S. ? 06/24/2021 ??3:14 PM Laryngoscopy Date/Time: 06/24/2021 3:08 PM Performed by: Dc Beard P.A.-C., M.S. Authorized by: Dc Beard P.A.-C., M.S. Dc Beard P.A.-C., M.S. ENT ORDERABLES documented in this encounter Visit Diagnoses Diagnosis Pulsatile Tinnitus Right Ear documented in this encounter Care Teams Dance Choreographer Relationship Specialty Start Date End Date Elsewhere, Pcp PCP - General Internal Medicine 03/29/21 documented as of this encounter
--- OUTSIDE RECORDS SUMMARY | 2021-12-17 08:17 | XMS_ITS | Clinical Summary ---
:1945 Author Organization [facility] Address [address] [place] [address] Care Team Providers Name Role Phone Elsewhere, Pcp Primary Care Provider Unavailable Source Comments Patient records contain information from all sites at [facility]. For routine questions regarding patient records, call [phone] during business hours, M-F 8:00 AM - 5:00 PM Central Time. Record requests for emergency care only can be directed to [phone] at any time.[facility] Allergies Active Allergy Reactions Severity Noted Date Comments Aspirin Other (see comments) 01/18/2020 Can't t malgorzata regular aspirin due to stomach ulcer Pineapple Other (see comments) 01/18/2020 Acid cu ts her mouth Shrimp Anaphylaxis 01/18/2020 Throat swells Medications Medication Sig Dispensed Refills Start Date End Date Status amLODIPine (NORVASC) 10 Take 10 mg by 0 12/21/2019 Active mg tablet mouth daily. lisinopriL Take 30 mg by 0 12/22/2019 Acti ve (PRINIVIL,ZESTRIL) 30 mouth daily. mg tablet omeprazole (PriLOSEC) Take 20 mg by [address] capsule mouth daily. aspirin [address] tablet Take 81 mg by 0 Active mouth daily. rosuvastatin (CRESTOR) Take 5 mg by 0 Active 5 mg tablet mouth daily. acetaminophen (TYLENOL) Take 1,000 mg 0 Active 500 mg tablet by mouth as needed for pain. alendronate (FOSAMAX) Take 70 mg by 0 03/20/2021 Active 70 mg tablet mouth once a week. 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 How often do you attend samaritan or More than 4 times per year 03/27/2021 jain services? Do you belong to any clubs or No 03/27/2021 organizations such as samaritan groups, unions, fraternal or athletic groups, or [...] place to sleep or slept in a fpc (including now)? Education Answer Date Recorded What is the highest level of school you have completed or th e 3rd grade 03/27/2021 highest degree you have received? 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 Vital Signs Vital Sign Reading Time Taken Comments Blood Pressure - - Pulse - - Temperature - - Respiratory Rate - - Oxygen Saturation - - Inhaled Oxygen Concentration - - Weight 61.2 kg (135 lb) 06/19/2021 12:49 PM CDT Height 162.6 cm (5' 4) 06/19/2021 12:49 PM CDT Body Mass Index 23.17 06/19/2021 12:49 PM CDT Plan of Treatment Health Maintenance Due Date Last Done Comments Hepatitis C Screening 1945 Zoster Vaccines (1 of 2) 12/15/1995 DTaP,Tdap,and Td Vaccines (1 - Tdap) 10/03/2018 10/02/2018 COVID-19 Vaccine (3 - Booster for 07/03/2020 05/08/2020, Pfizer series) Creatinine Level 01/18/2021 01/19/2020 Potassium Level 01/18/2021 01/19/2020 Sodium Level 01/18/2021 01/19/2020 Depression Screening (Annual PHQ-2) 02/09/2021 Fall Risk Screen (Annual) 02/09/2021 Influenza Vaccine (#1) 2021 04/08/2017 Pneumococcal vaccine (65+ years) Completed 10/02/2018, , 04/12/2015 Insurance Payer Benefit Plan Subscriber ID Effective Phone Address Typ e / Group Dates BLUE CROSS BCBS BLUE [id number] 2019-Prese ATTN: Cheng barry HMO BLUE SHIELD PLUS O nt [facility] [address] [address] [place] [address] Care Teams Route Rider Relationship Specialty Start Date End Date Elsewhere, Pcp PCP - General Internal Medicine 03/29/21
--- OUTSIDE RECORDS SUMMARY | 2021-12-17 08:18 | XMS_ITS | Encounter Summary ---
:1945 Author Organization [facility] Address [address] [place] [address] Care Team Providers Name Role Phone Unavailable Primary Care Provider Unavailable Reason for Referral Outpatient (Routine) - Closed Specialty Diagnoses / Procedures Referred By Contact Refer red To Contact Neurology Jason Billings M.D., M.P.H. [facility] Referral ID Status Reason Start Date Expiration Date Visits Requ ested Visits Authorized [id number] Closed 01/18/2020 01/17/2021 1 1 RRING MACHINE OPERATOR MRI/CAT/PET Scan (Routine) - Closed Specialty Diagnoses / Procedures Referred By Contact Refer red To Contact Radiology Diagnoses Seizure (HCC) Jason Billings M.D.[facility] Procedures MR Brain without IV Contrast CO MRI BRAIN WO CNTRST HC MRI BRAIN WO CNTRST M.P.H. Referral ID Status Reason Start Date Expiration Date Visits Requ ested Visits Authorized [id number] Closed 01/18/2020 01/17/2021 1 1 RRING MACHINE OPERATOR Reason for Visit Appointment Request (Routine) - Closed Specialty Diagnoses / Procedures Referred By Contact Refer red To Contact Neurology Diagnoses Seizure Disorder (HCC) Yanet Plascencia N.P. [address] [place] [address] Referral ID Status Reason Start Date Expiration Date Visits Requ ested Visits Authorized [id number] Closed 12/29/2019 12/28/2020 1 1 Encounter Details Date Type Department Care Team Description 01/18/2020 Comprehensive Visit Department of Jason Billings ([facility]) Neurology kori Chow M.D., (Primary Dx) [place], [place] M.P.H. [address] [place] [address] Social History Tobacco Use Types Packs/Day Years [...] or relatives? How often do you attend adventist or More than 4 times per year 03/27/2021 restorationism services? Do you belong to any clubs or No 03/27/2021 organizations such as adventist groups, unions, fraternal or athletic groups, or [...] or slept in a fpc (including now)? Sex Assigned at Date Recorded Female 03/27/2021 5:56 PM DEBURRING MACHINE OPERATOR documented as of this encounter Last Filed Vital Signs Vital Sign Reading Time Taken Comments Blood Pressure - - Pulse - - Temperature - - Respiratory Rate - - Oxygen Saturation - - Inhaled Oxygen Concentration - - Weight 55.3 kg (121 lb 14.6 oz) 01/18/2020 10:13 AM DEBURRING MACHINE OPERATOR Height 155.6 cm (5' 1.26) 01/18/2020 10:13 AM DEBURRING MACHINE OPERATOR Body Mass Index 22.84 01/18/2020 10:13 AM DEBURRING MACHINE OPERATOR documented in this encounter Consult Notes Jason Billings M.D., M.P.H. - 01/18/2020 10:00 AM CST SUBJECTIVE Referring Provider: Yanet Plascencia N.P. CHIEF COMPLAINT / REASON FOR VISIT Alethea Lambert is a 74 y.o. right-handed female who presents for evaluation of seizure. 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 Exam provided through the aid of child development teacher. Patient's granddaughter, who is bilingual, gives additional collateral. HISTORY OF PRESENT ILLNESS Patient was in [...] patient's stroke diagnosis, it occurred in the [place] about ten years ago. Shereportedly had [...] voice tremor that is stammering, and the metal engineering process worker had some difficult understanding her. I did obtain collateral history from others in the office today. I have reviewed outside records for this visit. [facility]. I have directly reviewed imaging studies for this visit. MRI Onset: November 2019 Seizure Description: See HPI [...] changes/senescent gliosis within the supratentorial white matter. EEG/EMU: None performed PET: N/A OTHER: N/A Co-morbidities: N/A Is [...] No drift in BUE Abnormal Movements - Extension tremor in b/l arms, L>R Sensation: intact to light touch x 4 Coordination: No ataxia or dysmetria on gaerhd-ej-iblx and xsbb-lu-gppb bilaterally. Normal finger tapping and other EUGENIA's are intact. Reflexes (R/L): Biceps 2+/2+, brachioradialsis 2+/2+, triceps 2+/2+; patellar 2+/2+, achilles 2+/2+.Toes downgoing to plantar stimulation bilaterally. Gait: Normal Gait and Station, Arm swing is of normal amplitude and symmetric In summary, 74 y.o. female with two impaired awareness events out of sleep associated with oral automatisms. This is concerning for seizures. We will obtain routine EEG, Epilepsy MRI, and basic labs and blood levels. She will follow up after testing is done. She has had issues with tolerating Keppra. Lamotrigine would likely be the next line medication; herhx of hyponatremia would make trileptal/carbamazepine concerning, while there may be insurance issues with vimpat or briviact. Patient is very thin and topiramate and zonisamide may not be good choices, though as a lower line medication one could potentially discuss topiramate given her hx of tremor. ASSESSMENT / PLAN #1 Seizure (HCC) - MR Brain without IV Contrast; Future; Expected date: 01/18/2020 - Levetiracetam Level; Future; Expected date: 01/18/2020 - CBC with Differential, Blood; Future; Expected date: 01/18/2020 - Comprehensive Metabolic Panel; Future; Expected date: 01/18/2020 Other orders - Neurology office visit (clinic); Future; Expected date: 01/25/2020 (After tests) PATIENT EDUCATION The impression and treatment plan [...] BILLING Total time spent with patient/family was 90 minutes, greater than 50% of which was spent in counseling and discussion and/or coordination of care as described above. RRING MACHINE OPERATOR Xuan Acosta M.D. - 01/18/2020 10:00 AM CST SUBJECTIVE REASON FOR CONSULT Nocturnal convulsions. Assisted by: Dr. Jason Billings, Department of Neurology. HISTORY OF PRESENT ILLNESS I reviewed the history and examination findings with Dr. Billings. I personally met, interviewed, andexamined Ms. Janae Lambert. In brief summary, she is a pleasant 74 y.o. right-handed female who is seen by request of Yanet Plascencia NP, for nocturnal convulsions. Her pertinent past medical history is significant for hypertension and gastroesophageal reflux disease (GERD). The history was obtained from the patient and patient's granddaughter. The visit was completed with the assistance of an in-person advisor to command in combat. She has no clear prior risk factors for epilepsy, and there is no family history of epilepsy. She reportedly experienced a stroke approximately 10 years ago at which time she developed acute right-sided hemiparesis that lasted for up to 1 year before completely resolving. Review of her outside MR brain images from November 24, 2019, does not demonstrate any clear evidence for prior stroke or structural abnormalities to account for seizures. November 24, 2019, while in her normal state of health, her , her bed partner, reportedly was awakened when she was experiencing a whole body convulsion lasting for up to 1 minute during which time she was unresponsive. Tongue biting or incontinence did not occur. Thereafter, when her granddaughter also arrived, she appeared to be experiencing some oral automatisms and was not responsive. The unresponsiveness lasted for up to 30 minutes, when she began to respond while in the ambulance. The patient herself recalls being in the local emergency department. At the time, she underwent an MRI of the brain referenced above that was normal. Her systolic blood pressure was elevated in the 200s. A lactate level was also noted to be elevated. Then, on December 25, 2019, and identical episode occurredwhile she was asleep. She was evaluated locally and initiated on levetiracetam 500 mg twice daily. She remains compliant with this medication, though does feel that she experiences an abnormal smell that lasts all day after taking this medication. There are no other spell types, upon comprehensive review. OBJECTIVE PHYSICAL EXAM BMI (Calculated): 22.8 kg/m?? (01/18/2020 10:13 AM) Height: 155.6 cm (01/18/2020 10:13 AM) Weight: 55.3 kg (01/18/2020 10:13 AM) Neuro: Please see comprehensive neurological examination documented by Dr. Billings for further details. To my examination, she does have a mild postural tremor of the hands without rest or action tremor. Coordination examination of the fingers and hands is normal. Gait examination is normal to straight away walking. There is no Romberg sign noted. Extraocular muscle movements are full, with no evidence for nystagmus seen. ASSESSMENT / PLAN #1 Nocturnal convulsions Ms. Janae Lambert has now experienced to unprovoked nocturnal convulsions occurring out of sleep. She is here for a second opinion regarding diagnosis and treatment. Accordingly, we will proceedwith a comprehensive epilepsy evaluation including an MRI with seizure protocol (to be compared to her outside MRI from November 24, 2019, completed without seizure protocol), EEG during wakefulness andsleep, and screening laboratory work, including trough levetiracetam level. She will be seen back inreturn thereafter to review the results and plan next steps. Given her concerns for an abnormal smell that last all day after taking levetiracetam, transition to an additional agent such as carbamazepine or lamotrigine could be discussed at the time of her return visit. She and her granddaughter had no further questions today and were happy with this plan. PATIENT EDUCATION Ready to learn, no apparent learning barriers were identified; learning preferences include listening. Explained diagnosis and treatment plan; patient expressed understanding of the content. RRING MACHINE OPERATOR documented in this encounter Plan of Treatment Scheduled Referrals Name Type Priority Associated Diagnoses Order S chedule Neurology office Outpatient Referral Routine Expe cted: visit (clinic) 01/25/2020 (Approximate), Expires: 01/17/2023 documented as of this encounter Results MR Brain without IV Contrast (01/19/2020 1:05 PM DEBURRING MACHINE OPERATOR) Anatomical Region Laterality Modality Head, Brain, Neuroradiology RST LOS, Neuroradiology NELLIE N/A Magnetic Resonance LOS, Neuroradiology FLA [facility] Specimen (Source) Anatomical Collection Method Collection Time Re ceived Time Location / / Volume Laterality 01/19/2020 3:57 PM DEBURRING MACHINE OPERATOR Impressions 01/19/2020 4:43 PM DEBURRING MACHINE OPERATOR Slightly increased T2 signal within the left hippocampal formation and left amygdala without asymmetric vol ume loss. Narrative 01/19/2020 4:43 PM DEBURRING MACHINE OPERATOR EXAM: MR BRAIN WITHOUT IV CONTRAST COMPARISON: None. ?? FINDINGS: Mild asymmetric increase in T2 signal in the left hippocampal formation and left amygdala (series 20 i mage 100) without abnormal volume loss. No evidence of forman matter heterotopia, polymicrogyria or pachygyria. No cortically based tissue loss. Mild scatt ered leukoaraiosis. No intracranial mass effect, evidence of acute infarct or ext ra-axial collection. Mucous retention cysts in the in a left ethmoid air cell and left inferior maxillary sinus. Image post-processing for quantitative s egmental volume reporting and assessment was performed on an independent computer room service server using [employer] software. The clinical indication for performing the p ost-processing was ??seizure ??. ??Review of the water quality analyst images demonstrat es good/poor segmentation of the hippocampi. Left hippocampal volume: ??3.23 ?cm3 Left hippocampal volume age-adjusted per centile: ??85 ?? % Right hippocampal volume: ??3.44 ?cm 3 Right hippocampal volume age-adjusted pe rcentile: ??87 ?? % Hippocampal asymmetry index: ??-6.36 ?? % ?? Asymmetry index percentile: ??45th perce ntile Procedure Note Raffaele Garcia M.D. - 01/19/2020Formatti ng of this note might be different from the original. EXAM: MR BRAIN WITHOUT IV CONTRAST COMPARISON: None. FINDINGS: Mild asymmetric increase in T2 signal in the left hippocampal formation and left amygdala (series 20 i mage 100) without abnormal volume loss. No evidence of forman matter heterotopia, polymicrogyria or pachygyria. No cortically based tissue loss. Mild scatt ered leukoaraiosis. No intracranial mass effect, evidence of acute infarct or ext ra-axial collection. Mucous retention cysts in the in a left ethmoid air cell and left inferior maxillary sinus. Image post-processing for quantitative s egmental volume reporting and assessment was performed on an independent computer room service server using [employer] software. The clinical indication for performing the p ost-processing was seizure . Review of the water quality analyst images demonstrat es good/poor segmentation of the hippocampi. Left hippocampal volume: 3.23 cm3 Left hippocampal volume age-adjusted per centile: 85 % Right hippocampal volume: 3.44 cm3 Right hippocampal volume age-adjusted pe rcentile: 87 % Hippocampal asymmetry index: -6.36 % Asymmetry index percentile: 45th percent ile IMPRESSION: Slightly increased T2 signal within the left hippocampal formation and left amygdala without asymmetric vol ume loss. Jason Billings M.D., M.P.H. IMG MRI PROCEDURES (ABNORMAL) Comprehensive Metabolic Panel (01/19/2020 7:23 AM DEBURRING MACHINE OPERATOR) athologist Signature Potassium, S 4.7 3.6 - 5.2 01/19/2020 DTL mmol/L 8:39 AM DEBURRING MACHINE OPERATOR Sodium, S 139 135 - 145 01/19/2020 DTL mmol/L 8:39 AM DEBURRING MACHINE OPERATOR Chloride, S 102 98 - 107 01/19/2020 DTL mmol/L 8:39 AM DEBURRING MACHINE OPERATOR Bicarbonate, S 23 22 - 29 01/19/2020 DTL mmol/L 8:39 AM DEBURRING MACHINE OPERATOR Anion Gap 14 7 - 15 01/19/2020 DTL 8:39 AM DEBURRING MACHINE OPERATOR BUN (Blood Urea 10 6 - 21 01/19/2020 DTL Nitrogen), S mg/dL 8:39 AM DEBURRING MACHINE OPERATOR Creatinine 0.71 0.59 - 01/19/2020 DTL 1.04 mg/dL 8:39 AM DEBURRING MACHINE OPERATOR eGFR-Non 84 >=60 01/19/2020 DTL Black/ mL/min/BSA 8:39 AM DEBURRING MACHINE OPERATOR [place] Comment: ----ADDITIONAL INFORMATION---- Estimated GFR calculated using the 2009 CKD_EPI creatinine equation. eGFR-Black/ >90 >=60 mL/min/BSA 2019 8:39 AM DEBURRING MACHINE OPERATOR DTL Comment: ----ADDITIONAL INFORMATION---- Estimated GFR calculated using the 2009 CKD_EPI creatinine equation. Calcium, Total, S 10.3 (H) 8.8 - 10.2 mg/dL 01/19/2020 8:39 AM DEBURRING MACHINE OPERATOR DTL Glucose, S 87 70 - 140 mg/dL 01/19/2020 8:39 AM DEBURRING MACHINE OPERATOR D TL Protein, Total, S 8.1 (H) 6.3 - 7.9 g/dL 01/19/2020 8:39 A M DEBURRING MACHINE OPERATOR DTL Albumin, S 4.7 3.5 - 5.0 g/dL 01/19/2020 8:39 AM DEBURRING MACHINE OPERATOR D TL Aspartate Aminotransferase 20 8 - 43 U/L 01/19/2020 8 :39 AM DEBURRING MACHINE OPERATOR DTL (AST), S Alkaline Phosphatase, S 78 35 - 104 U/L 01/19/2020 8: 39 AM DEBURRING MACHINE OPERATOR DTL Alanine Aminotransferase 20 7 - 45 U/L 01/19/2020 8:3 9 AM DEBURRING MACHINE OPERATOR DTL (ALT), S Bilirubin, Total, S 0.3 <=1.2 mg/dL 01/19/2020 8:39 AM DEBURRING MACHINE OPERATOR DTL Specimen Anatomical Collection Method Collection Time Receive d Time (Source) Location / / Volume Laterality Blood (Blood, 01/19/2020 7:23 AM 01/19/20 20 7:56 Venous) DEBURRING MACHINE OPERATOR AM DEBURRING MACHINE OPERATOR Jason Billings M.D., M.P.H. LAB BLOOD ADD-ON Performing Organization Address City/State/ZIP Code Phon e Number [facility] - [address] [place] [phone] [facility] [place] [address] [facility] [address] [facility] (ABNORMAL) CBC with Differential, Blood (01/19/2020 7:23 AM DEBURRING MACHINE OPERATOR) [facility] Method Time Signature Hemoglobin 14.2 11.6 - 01/19/2020 DTL 15.0 g/dL 8:04 AM DEBURRING MACHINE OPERATOR Hematocrit 42.9 35.5 - 01/19/2020 DTL 44.9 % 8:04 AM DEBURRING MACHINE OPERATOR Erythrocytes 4.75 3.92 - 01/19/2020 DTL 5.13 8:04 AM DEBURRING MACHINE OPERATOR x10(12)/L MCV 90.3 78.2 - 01/19/2020 DTL 97.9 fL 8:04 AM DEBURRING MACHINE OPERATOR RBC Distrib Width 13.2 12.2 - 01/19/2020 DTL 16.1 % 8:04 AM DEBURRING MACHINE OPERATOR Platelet Count 231 157 - 371 01/19/2020 DTL x10(9)/L 8:04 AM DEBURRING MACHINE OPERATOR Leukocytes 7.4 3.4 - 9.6 01/19/2020 DTL x10(9)/L 8:04 AM DEBURRING MACHINE OPERATOR Neutrophils 3.07 1.56 - 01/19/2020 DTL 6.45 8:04 AM DEBURRING MACHINE OPERATOR x10(9)/L Lymphocytes 3.69 (H) 0.95 - 01/19/2020 DTL 3.07 8:04 AM DEBURRING MACHINE OPERATOR x10(9)/L Monocytes 0.40 0.26 - 01/19/2020 DTL 0.81 8:04 AM DEBURRING MACHINE OPERATOR x10(9)/L Eosinophils 0.19 0.03 - 01/19/2020 DTL 0.48 8:04 AM DEBURRING MACHINE OPERATOR x10(9)/L Basophils 0.03 0.01 - 01/19/2020 DTL 0.08 8:04 AM DEBURRING MACHINE OPERATOR x10(9)/L Specimen Anatomical Collection Method Collection Time Receive d Time (Source) Location / / Volume Laterality Blood (Blood, 01/19/2020 7:23 AM 01/19/20 20 7:52 Venous) DEBURRING MACHINE OPERATOR AM DEBURRING MACHINE OPERATOR Jason Billings M.D., M.P.H. LAB BLOOD ADD-ON Performing Organization Address City/State/ZIP Code Phon e Number [facility] - [address] [place], [place] [address] [facility] [place] [place] [address] [facility] [address] [facility] (ABNORMAL) Levetiracetam Level (01/19/2020 7:23 AM DEBURRING MACHINE OPERATOR) P athologist Signature Levetiracetam, 9.7 (L) 12.0 - 01/19/2020 [facility] S 46.0 3:33 PM DEBURRING MACHINE OPERATOR mcg/mL Comment: ----ADDITIONAL INFORMATION---- This test was developed and its performa nce characteristics determined by [facility] in a manner consistent with CLIA requirements. This test has not been cleared or approved by the [place] and Drug Administration. Specimen Anatomical Collection Method Collection Time Receive d Time (Source) Location / / Volume Laterality Blood (Blood, 01/19/2020 7:23 AM 01/19/20 20 Venous) DEBURRING MACHINE OPERATOR 11:02 AM DEBURRING MACHINE OPERATOR Jason Billings M.D., M.P.H. LAB BLOOD NON ADD-ON Performing Organization Address City/State/ZIP Code Phon e Number [facility] [address] [place] [address] [facility] [place] [address] Laboratory Medicine and Pathology [address] [place] documented in this encounter Visit Diagnoses Diagnosis Seizure (HCC) - Primary Seizure (HCC) documented in this encounter
--- OUTSIDE RECORDS SUMMARY | 2021-12-17 08:18 | XMS_ITS | Encounter Summary ---
:1945 Author Organization [facility] Address [address] [place] [address] Care Team Providers Name Role Phone Unavailable Primary Care Provider Unavailable Encounter Details Date Type Department Care Team Description 01/19/2020 Hospital Encounter Department of Jason Billings Sei zure ([facility]) Laboratory Medicine and MEloy, M.P.H. Pathology, [facility] in [place], [place] [address] [place] [address] Social History Tobacco Use Types Packs/Day Years [...] or relatives? How often do you attend confucianist or More than 4 times per year 03/27/2021 yazidism services? Do you belong to any clubs or No 03/27/2021 organizations such as confucianist groups, unions, fraternal or athletic groups, or [...] place to sleep or slept in a jail (including now)? 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 aspirin [address] tablet Take 81 mg by 0 mouth daily. lisinopriL Take 30 mg by 0 12/22/2019 (PRINIVIL,ZESTRIL) 30 mg mouth daily. tablet omeprazole (PriLOSEC) 20 mg Take [address] capsule mouth daily. levETIRAcetam (KEPPRA) 500 Take 500 mg by 0 12/2404/25/2020 mg tablet mouth 2 (two) times a day. documented as of this encounter Plan of Treatment Not on filedocumented as of this encounter Procedures Procedure Name Priority Date/Time Associated Comments Diagnosis LEVETIRACETAM LEVEL, S Routine 01/19/2020 7:23 AM Seizure (HCC ) Results for this DEPUTY CITY CLERK procedure are i n the results section. CBC WITH DIFFERENTIAL, Routine 01/19/2020 7:23 AM Seizure (HCC ) Results for this B DEPUTY CITY CLERK procedure are i n the results section. COMPREHENSIVE Routine 01/19/2020 7:23 AM Seizure (HCC) Results for this METABOLIC PANEL, S/P DEPUTY CITY CLERK procedu re are in the results section. documented in this encounter Results (ABNORMAL) Comprehensive Metabolic Panel (01/19/2020 7:23 AM DEPUTY CITY CLERK) P athologist Signature Potassium, S 4.7 3.6 - 5.2 01/19/2020 DTL mmol/L 8:39 AM DEPUTY CITY CLERK Sodium, S 139 135 - 145 01/19/2020 DTL mmol/L 8:39 AM DEPUTY CITY CLERK Chloride, S 102 98 - 107 01/19/2020 DTL mmol/L 8:39 AM DEPUTY CITY CLERK Bicarbonate, S 23 22 - 29 01/19/2020 DTL mmol/L 8:39 AM DEPUTY CITY CLERK Anion Gap 14 7 - 15 01/19/2020 DTL 8:39 AM DEPUTY CITY CLERK BUN (Blood Urea 10 6 - 21 01/19/2020 DTL Nitrogen), S mg/dL 8:39 AM DEPUTY CITY CLERK Creatinine 0.71 0.59 - 01/19/2020 DTL 1.04 mg/dL 8:39 AM DEPUTY CITY CLERK eGFR-Non 84 >=60 01/19/2020 DTL Black/ mL/min/BSA 8:39 AM DEPUTY CITY CLERK Slovak Comment: ----ADDITIONAL INFORMATION---- Estimated GFR calculated using the 2009 CKD_EPI creatinine equation. eGFR-Black/ >90 >=60 mL/min/BSA 2019 8:39 AM DEPUTY CITY CLERK DTL Comment: ----ADDITIONAL INFORMATION---- Estimated GFR calculated using the 2009 CKD_EPI creatinine equation. Calcium, Total, S 10.3 (H) 8.8 - 10.2 mg/dL 01/19/2020 8:39 AM DEPUTY CITY CLERK DTL Glucose, S 87 70 - 140 mg/dL 01/19/2020 8:39 AM DEPUTY CITY CLERK D TL Protein, Total, S 8.1 (H) 6.3 - 7.9 g/dL 01/19/2020 8:39 A M DEPUTY CITY CLERK DTL Albumin, S 4.7 3.5 - 5.0 g/dL 01/19/2020 8:39 AM DEPUTY CITY CLERK D TL Aspartate Aminotransferase 20 8 - 43 U/L 01/19/2020 8 :39 AM DEPUTY CITY CLERK DTL (AST), S Alkaline Phosphatase, S 78 35 - 104 U/L 01/19/2020 8: 39 AM DEPUTY CITY CLERK DTL Alanine Aminotransferase 20 7 - 45 U/L 01/19/2020 8:3 9 AM DEPUTY CITY CLERK DTL (ALT), S Bilirubin, Total, S 0.3 <=1.2 mg/dL 01/19/2020 8:39 AM DEPUTY CITY CLERK DTL Specimen Anatomical Collection Method Collection Time Receive d Time (Source) Location / / Volume Laterality Blood (Blood, 01/19/2020 7:23 AM 01/19/20 20 7:56 Venous) DEPUTY CITY CLERK AM DEPUTY CITY CLERK Jason Billings M.D., M.P.H. LAB BLOOD ADD-ON Performing Organization Address City/State/ZIP Code Phon e Number [facility] - [address] [place], [place] [address] [facility] [place] [address] Laboratories-[employer] [facility] [employer] [facility] [address] (ABNORMAL) CBC with Differential, Blood (01/19/2020 7:23 AM DEPUTY CITY CLERK) [facility] gist Method Time Signature Hemoglobin 14.2 11.6 - 01/19/2020 DTL 15.0 g/dL 8:04 AM DEPUTY CITY CLERK Hematocrit 42.9 35.5 - 01/19/2020 DTL 44.9 % 8:04 AM DEPUTY CITY CLERK Erythrocytes 4.75 3.92 - 01/19/2020 DTL 5.13 8:04 AM DEPUTY CITY CLERK x10(12)/L MCV 90.3 78.2 - 01/19/2020 DTL 97.9 fL 8:04 AM DEPUTY CITY CLERK RBC Distrib Width 13.2 12.2 - 01/19/2020 DTL 16.1 % 8:04 AM DEPUTY CITY CLERK Platelet Count 231 157 - 371 01/19/2020 DTL x10(9)/L 8:04 AM DEPUTY CITY CLERK Leukocytes 7.4 3.4 - 9.6 01/19/2020 DTL x10(9)/L 8:04 AM DEPUTY CITY CLERK Neutrophils 3.07 1.56 - 01/19/2020 DTL 6.45 8:04 AM DEPUTY CITY CLERK x10(9)/L Lymphocytes 3.69 (H) 0.95 - 01/19/2020 DTL 3.07 8:04 AM DEPUTY CITY CLERK x10(9)/L Monocytes 0.40 0.26 - 01/19/2020 DTL 0.81 8:04 AM DEPUTY CITY CLERK x10(9)/L Eosinophils 0.19 0.03 - 01/19/2020 DTL 0.48 8:04 AM DEPUTY CITY CLERK x10(9)/L Basophils 0.03 0.01 - 01/19/2020 DTL 0.08 8:04 AM DEPUTY CITY CLERK x10(9)/L Specimen Anatomical Collection Method Collection Time Receive d Time (Source) Location / / Volume Laterality Blood (Blood, 01/19/2020 7:23 AM 01/19/20 20 7:52 Venous) DEPUTY CITY CLERK AM DEPUTY CITY CLERK Jason Billings M.D., M.P.H. LAB BLOOD ADD-ON Performing Organization Address City/State/ZIP Code Phon e Number [facility] - [address] [place], [place] [address] [facility] [place] [place] [address] Laboratories-[facility] [address] (ABNORMAL) Levetiracetam Level (01/19/2020 7:23 AM DEPUTY CITY CLERK) athologist Signature Levetiracetam, 9.7 (L) 12.0 - 01/19/2020 SDSC S 46.0 3:33 PM DEPUTY CITY CLERK mcg/mL Comment: ----ADDITIONAL INFORMATION---- This test was developed and its performa nce characteristics determined by [facility] in a manner consistent with CLIA requirements. This test has not been cleared or approved by the [place] d and Drug Administration. Specimen Anatomical Collection Method Collection Time Receive d Time (Source) Location / / Volume Laterality Blood (Blood, 01/19/2020 7:23 AM 01/19/20 20 Venous) DEPUTY CITY CLERK 11:02 AM DEPUTY CITY CLERK Jason Billings M.D., M.P.H. LAB BLOOD NON ADD-ON Performing Organization Address City/State/ZIP Code Phon e Number [facility] [address] [place] [address] SUPPORT CENTER [facility] [place] [address] Laboratory Medicine and Pathology [address] [place] documented in this encounter Visit Diagnoses Diagnosis Seizure (HCC) documented in this encounter
--- OUTSIDE RECORDS SUMMARY | 2021-12-17 08:18 | XMS_ITS | Encounter Summary ---
:1945 Author Organization [facility] Address [address] [place] [address] Care Team Providers Name Role Phone Unavailable Primary Care Provider Unavailable Encounter Details Date Type Department Care Team Description 12/29/2019 [facility] Yanet Plascencia S eizure [facility] ([facility]) (Primary Dx) [address] [facility] [address] [place] [address] [place], [place] [phone] Social History Tobacco Use Types Packs/Day Years Used Date Smoking Tobacco: Never Assessed Alcohol Habits Answer Date Recorded How often [...] More than 4 times per year 03/27/2021 temple services? Do you belong to any clubs [...] place to sleep or slept in a [place] (including now)? 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
--- OUTSIDE RECORDS SUMMARY | 2021-12-17 08:18 | XMS_ITS | Encounter Summary ---
:1945 Author Organization [facility] Address [address] [place] [address] Care Team Providers Name Role Phone Unavailable Primary Care Provider Unavailable Reason for Referral Outpatient (Routine) - Closed Specialty Diagnoses / Procedures Referred By Contact Refer red To Contact Diagnoses Seizure (HCC) Xuan Acosta M.D. [facility] Procedures EEG routine - awake and sleep [address] [place] [phone] Referral ID Status Reason Start Date Expiration Date Visits Requ ested Visits Authorized [id number] Closed 01/04/2020 01/03/2021 1 1 CAST PRODUCER Reason for Visit Reason Comments New Pt orders Encounter Details Date Type Department Care Team Description 01/03/2020 Clinical Communication Department of Xuan Acosta Ne w Pt orders Neurology in .[place], [place] [address] [place] [address] [place] [phone] Social History Tobacco Use Types Packs/Day Years [...] or relatives? How often do you attend orthodoxy or More than 4 times per year 03/27/2021 latter day services? Do you belong to any clubs or No 03/27/2021 organizations such as orthodoxy groups, unions, fraternal or athletic groups, or [...] place to sleep or slept in a residential (including now)? Sex Assigned at Date Recorded Female 03/27/2021 5:56 PM NEWSCAST PRODUCER documented as of this encounter Plan of Treatment Not on filedocumented as of this encounter Results EEG routine - awake and sleep (01/19/2020 9:23 AM NEWSCAST PRODUCER) Specimen (Source) Anatomical Location Collection Method / Collectio n Time Received Time / Laterality Volume Narrative MMODAL - 01/19/2020 10:42 AM NEWSCAST PRODUCER Clinical Interpretation: The short-term video EEG shows a moderate degree of nonspecific slow wave abnormalities o rajan the bilateral temporal regions, which occurs maximally over the left temporal region. There is excess generalized fast activity present , which can be seen secondary to medication effects. The sleep recording was unsuccessful. No definitively epileptiform activity was present during the awake or drowsy recordings. Classification: SPECIAL STUDY - Short-te rm video EEG. Dysrhythmia grade 2, bitemporal, maximal left (awake). Sleep - unsuccessful. EKG channel. Report: The short-term video EEG recordi ng during wakefulness contains up to 12 Hz alpha activity over the posteri or head regions. There is excess generalized beta activity present. There is frequent slowing seen over the bilateral temporal head regions with bit emporal sharp transients that are not clearly epileptiform. This slowing o ccurs maximally over the left temporal region. ??No abnormal activity occurred during photic stimulation. Hyperventilation was omitted per protoco l during COVID-19. Despite an extended recording, the patie nt did not fall asleep. The EKG channel was unremarkable. Xuan Acosta M.D. NEUROLOGY ORDERABLES Performing Organization Address City/State/ZIP Code Phon e Number MMODAL MMODAL NA documented in this encounter Visit Diagnoses Diagnosis Seizure (HCC) - Primary Seizure (HCC) documented in this encounter
--- OUTSIDE RECORDS SUMMARY | 2021-12-17 08:18 | XMS_ITS | Encounter Summary ---
:1945 Author Organization [facility] Address [address] [place] [address] Care Team Providers Name Role Phone Unavailable Primary Care Provider Unavailable Reason for Referral Outpatient (Routine) - Closed Specialty Diagnoses / Procedures Referred By Contact Refer red To Contact Neurology Jason Billings M.D., M[facility]P.[facility] Referral ID Status Reason Start Date Expiration Date Visits Requ ested Visits Authorized [id number] Closed 01/25/2020 01/24/2021 1 1 TUTOR Reason for Visit Outpatient (Routine) - Closed Specialty Diagnoses / Procedures Referred By Contact Refer red To Contact Neurology Jason Billings M.D., [facility] Referral ID Status Reason Start Date Expiration Date Visits Requ ested Visits Authorized [id number] Closed 01/18/2020 01/17/2021 1 1 Encounter Details Date Type Department Care Team Description 01/25/2020 Office Visit Department of Jason Billings, Seizure ( HCC) (Primary Neurology in [place], M.P.H. Dx) [place], [place] [address] [place] [address] Social History Tobacco Use Types Packs/Day Years [...] or relatives? How often do you attend temple or More than 4 times per year 03/27/2021 catholic services? Do you belong to any clubs or No 03/27/2021 organizations such as temple groups, unions, fraSparks or athletic groups, or school groups? How [...] slept in a group home (including now)? Sex Assigned at Date Recorded Female 03/27/2021 5:56 PM LAW TUTOR documented as of this encounter Patient Instructions Patient InstructionsJason Billings M.D., M.P.H. - 01/25/2020 5:00 PM LAW TUTOR Lamotrigine 25 mg tablets build up dose per schedule: Lamotrigine 25 mg tabletas debe subir la dosis gino el horario. 1 tableta (25 mg) por boca diariamente por george semana. (1 tablet (25 mg) by mouth daily for 1 week) Despues, 1 tableta (25 mg) dos veces al hakeem por george semana, (then 1 tablet (25 mg) twice daily for 1 week) Despues 1 tableta (25 mg.) en la manana y dos tabletas en la noche por george semana, (then 1 tablet (25 mg) in morning & 2 tablets (50 mg) at night for 1 week) Despues, dos tabletas (significa 50 mg. Total) en la manana Y dos tabletas (de 25 mg.=50mg) en la noche. (then 2 tablets (50 mg) twice daily for 1 week) Despues, amber tabletas en la manana y amber tabletas in la noche. (then 3 tablets (75 mg) twice daily for 1 week) Y finalmente, george tableta de 100 mg. Dos veces al hakeem. (then 100 mg twice daily, with 100 mg tablets) TUTOR documented in this encounter Progress Notes Jason Billings M.D., M.P.H. - 01/25/2020 5:00 PM CST SUBJECTIVE Referring Provider: Jason Billings M.D., M.P.H. CHIEF COMPLAINT / REASON FOR VISIT Alethea Lambert is a 74 y.o. right-handed female who presents for evaluation of seizure. 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 Exam provided through the aid of ehs teacher. Patient's granddaughter, who is bilingual, gives additional collateral. Since her original visit last week we obtained MRI (Slightly increased T2 signal within the left hippocampal formation), routineEEG (moderate degree of nonspecific slow wave abnormalities over the bilateral temporal regions, which occurs maximally over the left temporal region), and Keppra level (subtheraputic at 9.7). CBC and CMP were unremarkable. HISTORY OF PRESENT ILLNESS Patient was in [...] voice tremor that is stammering, and the american sign language interpreter had some difficult understanding her. Interval History (01/25/20): She has had no subsequent seizures. She further revealed that she has not been taking the full dose of Keppra, and only had been taking 500 mg *qhs* rather than BID. She has no other complaints. Onset: November [...] 4 Coordination: No ataxia or dysmetria on wyidms-qu-isiv and uyln-qe-iitf bilaterally. Normal finger tapping and other EUGENIA's [...] on the left and indeterminant findings on EEG.. This is consistent with a focal epilepsy. It appears that she cannot tolerate Keppra and in essence had not been taking a full dose, and was subtheraputic. Given that she does not drive and has had rare events, we will start a titration of lamotrigine in the following manner: Lamotrigine 25 mg tablets build up dose per medication calendar: 1 tablet (25 mg) by mouth daily for2 weeks, then 1 tablet (25 mg) twice daily for 2 weeks, then 2 tablets (50 mg) twice daily for 1 week, then 3 tablets (75 mg) twice daily for 1 week, then 100 mg twice daily thereafter (switch to 100 mg tablets if target dose reached). We will check level in 6 weeks. This was provided to patient in both Turkmen and Micronesian; the Micronesian translation was made with the help of the ehs teacher. With regards to her tremor, she did endorse that it particularly is notable with anxiety. It is possible that the mood stabilizing effect of lamotrigine may help with this. If it does not, we can consider propranolol in the future. ASSESSMENT / PLAN 1. Seizure (HCC) - Return in 3 months - Lamotrigine Level; Future Discussed plan with Dr. Acosta. PATIENT EDUCATION The impression and treatment plan [...] BILLING Total time spent with patient/family was 60 minutes, greater than 50% of which was spent in counseling and discussion and/or coordination of care as described above. TUTOR documented in this encounter Plan of Treatment Scheduled Referrals Name Type Priority Associated Diagnoses Order [facility] Neurology office Outpatient Referral Routine Expe cted: visit (clinic) 04/24/2020 (Approximate), Expires: 01/24/2023 documented as of this encounter Results Lamotrigine Level (03/07/2020 10:14 AM LAW TUTOR) P athologist Signature Lamotrigine, S 3.1 2.5 - 15.0 03/08/2020 SDSC mcg/mL 11:42 AM LAW TUTOR Comment: ----ADDITIONAL INFORMATION---- This test was developed and its performa nce characteristics determined by [facility] in a manner consistent with CLIA requirements. This test has not been cleared or approved by the [place] and Drug Administration. Specimen Anatomical Collection Method Collection Time Receive d Time (Source) Location / / Volume Laterality Blood (Blood, 03/07/2020 10:14 03/08/2020 8:00 Venous) AM LAW TUTOR AM LAW TUTOR Jason Billings M.D., M.P.H. LAB BLOOD NON ADD-ON Performing Organization Address City/State/ZIP Code Phon e Number [facility] [address] [place] [address] SUPPORT CENTER [facility] [place] [address] Laboratory Medicine and Pathology [address] [place] documented in this encounter Visit Diagnoses Diagnosis Seizure (HCC) - Primary documented in this encounter
--- OUTSIDE RECORDS SUMMARY | 2021-12-17 08:18 | XMS_ITS | Encounter Summary ---
:1945 Author Organization [facility] Address [address] [place] [address] Care Team Providers Name Role Phone Unavailable Primary Care Provider Unavailable Reason for Referral MRI/CAT/PET Scan (Routine) - Closed Specialty Diagnoses / Procedures Referred By Contact Refer red To Contact Radiology Diagnoses Seizure (HCC) Jason Billings M.D., [facility] Procedures MR Brain without IV Contrast CT MRI BRAIN WO CNTRST HC MRI BRAIN WO CNTRST M.P.H. Referral ID Status Reason Start Date Expiration Date Visits Requ ested Visits Authorized [id number] Closed 01/18/2020 01/17/2021 1 1 STAND MANAGER Reason for Visit MRI/CAT/PET Scan (Routine) - Closed Specialty Diagnoses / Procedures Referred By Contact Refer red To Contact Radiology Diagnoses Seizure (HCC) Jason Billings M.D., [facility] Procedures MR Brain without IV Contrast CT MRI BRAIN WO CNTRST HC MRI BRAIN WO CNTRST M.P.H. Referral ID Status Reason Start Date Expiration Date Visits Requ ested Visits Authorized [id number] Closed 01/18/2020 01/17/2021 1 1 Encounter Details Date Type Department Care Team Description 01/19/2020 Hospital Encounter Department of Jason Billings Sei zure ([facility]) Radiology, Giancarlo Cramer, M.P.H. [place], in [place], [place] [address] [place] [address] Social History Tobacco Use Types Packs/Day Years [...] 03/27/2021 organizations such as sikh groups, unions, fraPeopleString or athletic groups, or school groups? How [...] or slept in a retirement (including now)? Sex Assigned at Date Recorded Female 03/27/2021 5:56 PM FOOD STAND MANAGER documented as of this encounter Medications at [...] Name Priority Date/Time Associated Comments Diagnosis MR BRAIN WITHOUT RAD - Routine 01/19/2020 1:05 Seizure (HCC) Result s for this IV CONTRAST (most inpatients PM FOOD STAND MANAGER procedure a re in and all the results outpatients) section. documented in this encounter Results MR Brain without IV Contrast (01/19/2020 1:05 PM FOOD STAND MANAGER) Anatomical Region Laterality Modality Head, Brain, Neuroradiology RST LOS, Neuroradiology ARZ N/A Magnetic Resonance LOS, Neuroradiology FLA [facility] Specimen (Source) Anatomical Collection Method Collection Time Re ceived Time Location / / Volume Laterality 01/19/2020 3:57 PM FOOD STAND MANAGER Impressions 01/19/2020 4:43 PM FOOD STAND MANAGER Slightly increased T2 signal within the left hippocampal formation and left amygdala without asymmetric vol ume loss. Narrative 01/19/2020 4:43 PM FOOD STAND MANAGER EXAM: MR BRAIN WITHOUT IV CONTRAST COMPARISON: [...] assessment was performed on an independent computer bistro server using KOEZY software. The clinical indication for performing the p ost-processing was ??seizure ??. ??Review of the quality assurance test program manager images demonstrat es good/poor segmentation of the [...] assessment was performed on an independent computer bistro server using KOEZY software. The clinical indication for performing the p ost-processing was seizure . Review of the quality assurance test program manager images demonstrat es good/poor segmentation of the [...]
--- OUTSIDE RECORDS SUMMARY | 2021-12-17 08:18 | XMS_ITS | Encounter Summary ---
:1945 Author Organization [facility] Address [address] [place] [address] Care Team Providers Name Role Phone Unavailable Primary Care Provider Unavailable Encounter Details Date Type Department Care Team Description 03/07/2020 Hospital Encounter Department of Jason Billings Sei zure ([facility], [facility]IN [facility]) Laboratory Medicine in M.D., M.P.H. Su, [address] [phone] Social History Tobacco Use Types Packs/Day Years [...] or relatives? How often do you attend restorationism or More than 4 times per year 03/27/2021 christianity services? Do you belong to any clubs or No 03/27/2021 organizations such as restorationism groups, unions, fraternal or athletic groups, or [...] at Date Recorded Female 03/27/2021 5:56 PM TOMBSTONE POLISHER documented as of this encounter Medications at Time of Discharge Medication Sig Dispensed Refills Start Date End Date amLODIPine (NORVASC) 10 Take 10 mg by mouth 0 12/2019 mg tablet daily. aspirin [address] tablet Take 81 mg by mouth 0 daily. lisinopriL Take 30 mg by mouth 0 12/22/2019 (PRINIVIL,ZESTRIL) 30 mg daily. tablet omeprazole (PriLOSEC) 20 Take 20 mg by mouth [address] capsule daily. lamoTRIgine (LaMICtaL) After completing 25 60 tablet 12 01/0902/18/2021 100 mg tablet mg tab Rx as per med schedule, switch to 100 mg tablets 1 tab twice daily lamoTRIgine (LaMICtaL) Week 1&2: 1 tab 112 tablet 0 01/25/20 20 04/25/2020 25 mg tablet nightly. Then increase dose per med sched to 3 tabs twice daily for 1 week then switch to 100 mg tabs levETIRAcetam (KEPPRA) Take 500 mg by mouth 0 04/25/2020 500 mg tablet 2 (two) times a day. documented as of this encounter Plan of Treatment Not on filedocumented as of this encounter Procedures Procedure Name Priority Date/Time Associated Comments Diagnosis LAMOTRIGINE LEVEL, S Routine 03/07/2020 10:14 Seizure (HCC) Re sults for this AM TOMBSTONE POLISHER procedure are i n the results section. documented in this encounter Results Lamotrigine Level (03/07/2020 10:14 AM TOMBSTONE POLISHER) P athologist Signature Lamotrigine, S 3.1 2.5 - 15.0 03/08/2020 SDSC mcg/mL 11:42 AM TOMBSTONE POLISHER Comment: ----ADDITIONAL INFORMATION---- This test was developed and its performa nce characteristics determined by [facility] in a manner consistent with CLIA requirements. This test has not been cleared or approved by the [place] and Drug Administration. Specimen Anatomical Collection Method Collection Time Receive d Time (Source) Location / / Volume Laterality Blood (Blood, 03/07/2020 10:14 03/08/2020 8:00 Venous) AM TOMBSTONE POLISHER AM TOMBSTONE POLISHER Jason Billings M.D., M.P.H. LAB BLOOD NON ADD-ON Performing Organization Address City/State/ZIP Code Phon e Number [facility] [address] [place] [address] SU[facility] CENTER [facility] [place] [address] Laboratory Medicine and Pathology [address] [place] documented in this encounter Visit Diagnoses Diagnosis Seizure (HCC) documented in this encounter
--- OUTSIDE RECORDS SUMMARY | 2021-12-17 08:18 | XMS_ITS | Encounter Summary ---
:1945 Author Organization [facility] Address [address] [place] [address] Care Team Providers Name Role Phone Unavailable Primary Care Provider Unavailable Reason for Referral Outpatient (Routine) - Closed Specialty Diagnoses / Procedures Referred By Contact Refer red To Contact Diagnoses Seizure (HCC) Xuan Acosta M.D. [facility] Procedures EEG routine - awake and sleep [address] [place], [place] [phone] Referral ID Status Reason Start Date Expiration Date Visits Requ ested Visits Authorized [id number] Closed 01/04/2020 01/03/2021 1 1 OING INSPECTOR Reason for Visit Outpatient (Routine) - Closed Specialty Diagnoses / Procedures Referred By Contact Refer red To Contact Diagnoses Seizure (HCC) Xuan Acosta M.D. [facility] Procedures EEG routine - awake and sleep [address] [place], [place] [address] Referral ID Status Reason Start Date Expiration Date Visits Requ ested Visits Authorized [id number] Closed 01/04/2020 01/03/2021 1 1 Encounter Details Date Type Department Care Team Description 01/19/2020 Hospital Encounter Department of Neurology Yanet Acosta, Seizure (HCC) in [facility] cameron Cramer [address] [place] [address] [place], [place] [phone] Social History Tobacco Use Types Packs/Day Years [...] or relatives? How often do you attend yarsani or More than 4 times per year 03/27/2021 orthodox services? Do you belong to any clubs or No 03/27/2021 organizations such as yarsani groups, unions, fraternal or athletic groups, or [...] at Date Recorded Female 03/27/2021 5:56 PM OUTGOING INSPECTOR documented as of this encounter Medications at [...] Name Priority Date/Time Associated Diagnosis Comme nts EEG ROUTINE - AWAKE Routine 01/19/2020 9:23 AM Seizure (HCC) R esults for this AND SLEEP OUTGOING INSPECTOR procedure are i n the results section. documented in this encounter Results EEG routine - awake and sleep (01/19/2020 9:23 AM OUTGOING INSPECTOR) Specimen (Source) Anatomical Location Collection Method / Collectio n Time Received Time / Laterality Volume Narrative MMODAL - 01/19/2020 10:42 AM OUTGOING INSPECTOR Clinical Interpretation: The short-term video EEG shows [...]
--- OUTSIDE RECORDS SUMMARY | 2021-12-17 08:18 | XMS_ITS | Encounter Summary ---
:1945 Author Organization [facility] Address [address] [place] [address] Care Team Providers Name Role Phone Unavailable Primary Care Provider Unavailable Reason for Visit Reason Comments COVID Inquiry Encounter Details Date Type Department Care Team Description 01/03/2020 Clinical Communication Department of Line, Covid Help COVID Inquiry Neurology in [place], [place] [address] [place] [address] Social History Tobacco Use Types Packs/Day Years [...] More than 4 times per year 03/27/2021 hindu services? Do you belong to any clubs [...] at Date Recorded Female 03/27/2021 5:56 PM COMPUTER GRAPHIC ARTIST documented as of this encounter Miscellaneous Notes Telephone Encounter - Heidi Segura - 01/03/2020 4:42 PM COMPUTER GRAPHIC ARTIST COVID DOS/PASS Screening What is the patient requesting?: Additional Appointments (Continue with screening) Have you tested positive for COVID-19 in the last 30 days (20 days for ARZ) or do you have a pendingCOVID-19 test because you had symptoms?: No (Continue with screening) Have you had close contact* with a person who has a LABORATORY CONFIRMED case of COVID-19 in the past 14 days?: No (Continue with screening) When is the patient asking to be scheduled F2F?: Less than 30 days in [facility], [facility], [facility] (Continue screening) In the past 14 days are any of the following symptoms new to you and not related to an existing health condition?: No symptoms noted (End screening - schedule as appropriate) Plan: Endpoint recommendation: Followed regional OTG *Reminder if sending patient for testing in [facility] or [facility], an email notification is required. UTER GRAPHIC ARTIST documented in this encounter Plan of Treatment Not on filedocumented as of this encounter Visit Diagnoses Not on filedocumented in this encounter
[2021-12-17 14:38] LABS: HDL Cholesterol* 51 mg/dL (>=50); Triglycerides* 304 mg/dL (40-149)
[2021-12-17 15:00] LABS: Cholesterol* 334 mg/dL (90-199); LDL Cholesterol Calculated 222 mg/dL (<100)
[2021-12-17 15:25] LABS: Vitamin B12* 800 pg/mL (243-894)
== END 2021-12-17 08:14 | disposition home or self-care (01) ==
PROVIDERS: PCP Family Medicine; Visit Provider Family Medicine
DX: E78.5 Hyperlipidemia, unspecified (principal); I10 Essential (primary) hypertension; Z13.21 Encounter for screening for nutritional disorder; Z13.0 Encounter for screening for diseases of the blood and blood-forming organs and certain disorders involving the immune mechanism
CPT/HCPCS: 80061; 82607

== ENCOUNTER 2022-08-20 15:49 | Outpatient (CLI) | payer BC, SELFPAY | END 2022-08-20 15:50 | disposition home or self-care (01) | PROVIDERS: PCP Family Medicine; Visit Provider Family Medicine | DX: I10 Essential (primary) hypertension (principal); E78.5 Hyperlipidemia, unspecified; M25.50 Pain in unspecified joint; M54.2 Cervicalgia | CPT/HCPCS: 85651; 86200; 86431; 86618 ==

== ENCOUNTER 2023-05-25 09:10 | Outpatient (CLI) | payer BC, SELFPAY ==
--- OUTSIDE RECORDS SUMMARY | 2023-05-25 09:13 | XMS_ITS | Referral Summary ---
Author Name Unknown Organization [facility] Address [address] [place] [address] Care Team Providers Care Automotive Technician Name Role Phone Elsewhere, Pcp Primary Care Provider Unavailabl e Source Comments Patient records contain information from all sites at [facility]. For routine questions regarding patient records, call [phone] during business hours, M-F 8:00 AM - 5:00 PM Central Time. Record requests for emergency care only can be directed to [phone] at any time.[facility] Allergies Active Allergy Reactions Criticality Noted Date Comments Aspirin Other (see comments) 01/18/2020 Can't take regular aspirin due to stomach ulcer Pineapple Other (see comments) 01/18/2020 Acid cuts her mouth Shrimp Anaphylaxis 01/18/2020 Throat swells Medications Medication Sig Dispensed Refills Start Date End Date Status amLODIPine (NORVASC) 10 mg tablet Take 10 mg by mouth daily. 12/21/2019 Active lisinopriL (PRINIVIL,ZESTRIL) 30 mg tablet Take 30 mg by mouth daily. 12/22/2019 Active omeprazole (PriLOSEC) [address] capsule Take 20 mg by mouth daily. Active aspirin [address] tablet Take 81 mg by mouth daily. Active rosuvastatin (CRESTOR) 5 mg tablet Take 5 mg by mouth daily. Active acetaminophen (TYLENOL) 500 mg tablet Take 1,000 mg by mouth as needed for pain. Active alendronate (FOSAMAX) 70 mg tablet Take 70 mg by mouth once a week. 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 180 tablet 3 02/25/2022 Active Social History Tobacco Use Types Packs/Day Years Used Date Smoking Tobacco: Never Smokeless Tobacco: Never Alcohol Use Standard Drinks/Week Comments Never 0 (1 standard drink = 0.6 oz pur e alcohol) Humiliation, Afraid, Rape, and Kick questionnair e Answer Date Recorded Within the last year, have y ou been afraid of your partner or ex-partner? No 03/27/2021 Within the last year, have y ou been humiliated or emotionally abused in other ways by your partner or ex-partner? No Within the last year, have y ou been kicked, hit, slapped, or otherwise physically hurt by your partner or ex-partner? No 03/27/2021 Within the last year, have y ou been raped or forced to have any kind of sexual activity by your partner or ex-partner? No 03/27/2021 Social Connection and Isolat ion Panel [NHANES] Answer Date Recorded In a typical week, how many times do you talk on the phone with family, friends, or neighbors? More than three times a week 03/27/2021 How often do you get togethe r with friends or relatives? Once a week 03/27/2021 How often do you attend chur or judaism services? More than 4 times per year 03/27/2021 Do you belong to any clubs o r organizations such as latter-day groups, unions, fraternal or athletic groups, or school groups? No 03/27/2021 How often do you attend meet ings of the clubs or organizations you belong to? Never 03/27/2021 Are you , , di vorced, , never , or living with a partner? 03/27/2021 AUDIT-C Answer Date Recorded Q1: How often do you have a drink containing alc ohol? Never 03/27/2021 Average Number of Drinks Not on file 022 Frequency of Binge Drinking Not on file 03/12 Overall Financial Resource Strain (CARDIA) Answe r Date Recorded How hard is it for you to pa y for the very basics like food, housing, medical care, and heating? Patient declined 03/27/2021 [facility] - Occupational Stress Questionnaire Answer Date Recorded Do you feel stress - tense, restless, nervous, or anxious, or unable to sleep at night because your mind is troubled all the time - these days? Only a little 03/27/2021 Exercise Vital Sign Answer Date Recorde d On average, how many days pe r week do you engage in moderate to strenuous exercise (like a brisk walk)? 2 days 03/27/2021 On average, how many minutes do you engage in exercise at this level? 30 min 03/27/2021 Hunger Vital Sign Answer Date Recorded Within the past 12 months, y ou worried that your food would run out before you got the money to buy more. Never true 03/27/19 Within the past 12 months, t he food you bought just didn't last and you didn't have money to get more. Never true 03/27/2021 PRAPARE - Transportation Answer Date Re corded In the past 12 months, has l ack of transportation kept you from medical appointments or from getting medications? No 03/12 In the past 12 months, has l ack of transportation kept you from meetings, work, or from getting things needed for daily living? No 03/27/2021 Housing Stability Vital Sign Answer Dex e Recorded In the last 12 months, was t here a time when you were not able to pay the mortgage or rent on time? Patient refused 03/27/19 In the last 12 months, how many places have you lived? 1 03/27/2021 In the last 12 months, was t here a time when you did not have a steady place to sleep or slept in a halfway (including now)? No 03/27/2021 Nutrition Answer Date Recorded Nutrition: EVOO Fat Source No 03/27 On average, how many serving s of fruits and vegetables do you eat per day (serving size is equal to 1 cup or approximately the size of a tennis ball)? 4-5 03/27/2021 Dental Answer Date Recorded Dental: Regular Dentist Yes 03/27/19 Employment Answer Date Recorded Employment status N/A 03/27/2021 Education Answer Date Recorded What is the highest level of school you have completed or the highest degree you have received? 3rd grade 03/27/2021 Sex and Gender Information Value Date Recorded Sex Assigned at Female 03/27/2021 5:56 PM RESEARCH PROFESSIONAL Gender Identity Female 03/27/2021 5:56 PM RESEARCH PROFESSIONAL Sexual Orientation Straight 03/27/2021 5: 56 PM RESEARCH PROFESSIONAL Last Filed Vital Signs Vital Sign Reading Time Taken Comments Blood Pressure - - Pulse - - Temperature - - Respiratory Rate - - Oxygen Saturation - - Inhaled Oxygen Concentration - - Weight 61.2 kg (135 lb) 06/19/2021 12:49 PM CDT Height 162.6 cm (5' 4) 06/19/2021 12:49 PM CDT Body Mass Index 23.17 06/19/2021 12:49 PM CDT Plan of Treatment Not on file Procedures Procedure Name Priority Date/Time Associated Diagnosis Comments COMPREHENSIVE METABOLIC PANEL, S/P Routine 01/19/2020 7:23 AM RESEARCH PROFESSIONAL Seizure (HCC) from Last 3 Months or Most Recently Relevant to Health Maintenance Results * (ABNORMAL) Comprehensive Metabolic Panel (01/19/2020 7:23 AM RESEARCH PROFESSIONAL) Potassium, S 4.7 3.6 - 5.2 mmol/L 01/19/2020 8:39 AM RESEARCH PROFESSIONAL DTL Sodium, S 139 135 - 145 mmol/L 01/19/2020 8:39 AM RESEARCH PROFESSIONAL DTL Chloride, S 102 98 - 107 mmol/L 01/19/2020 8:39 AM RESEARCH PROFESSIONAL DTL Bicarbonate, S 23 22 - 29 mmol/L 01/19/2020 8:39 AM RESEARCH PROFESSIONAL DTL Anion Gap 14 7 - 15 01/19/2020 8:39 AM RESEARCH PROFESSIONAL DTL BUN (Blood Urea Nitrogen), S 10 6 - 21 mg/dL 01/19/2020 8:39 AM RESEARCH PROFESSIONAL DTL Creatinine 0.71 0.59 - 1.04 mg/dL 01/19/2020 8:39 AM RESEARCH PROFESSIONAL DTL eGFR-Non Black/ 84 >=60 mL/min/BS A 01/19/2020 8:39 AM RESEARCH PROFESSIONAL DTL Comment: ----ADDITIONAL INFORMATION---- Estimated GFR calculated using the 2009 CKD_EPI creatinine equation. eGFR-Black/ >90 >=60 mL/min/BS A 01/19/2020 8:39 AM RESEARCH PROFESSIONAL DTL Comment: ----ADDITIONAL INFORMATION---- Estimated GFR calculated using the 2009 CKD_EPI creatinine equation. Calcium, Total, S 10.3(H) 8.8 - 10.2 mg/dL 01/19/2020 8:39 AM RESEARCH PROFESSIONAL DTL Glucose, S 87 70 - 140 mg/dL 01/19/2020 8:39 AM RESEARCH PROFESSIONAL DTL Protein, Total, S 8.1(H) 6.3 - 7.9 g/dL 01/19/2020 8:39 AM RESEARCH PROFESSIONAL DTL Albumin, S 4.7 3.5 - 5.0 g/dL 01/19/2020 8:39 AM RESEARCH PROFESSIONAL DTL Aspartate Aminotransferase (AST), S 20 8 - 43 U/L 01/19/2020 8:39 AM RESEARCH PROFESSIONAL DTL Alkaline Phosphatase, S 78 35 - 104 U/L 01/19/2020 8:39 AM RESEARCH PROFESSIONAL DTL Alanine Aminotransferase (ALT), S 20 7 - 45 U/L 01/19/2020 8:39 AM RESEARCH PROFESSIONAL DTL Bilirubin, Total, S 0.3 <=1.2 mg/dL 01/19/2020 8:39 AM RESEARCH PROFESSIONAL DTL Blood (Blood, Venous) 01/19/2020 7:23 AM RESEARCH PROFESSIONAL 01/19/2020 7:56 AM RESEARCH PROFESSIONAL Jason Billings M.D., M.P.H. LAB BLOOD A DD-ON [facility] [address] [place] [address], [facility] [address] [place] [address] from Last 3 Months or Most Recently Relevant to Health Maintenance Care Teams Automotive Technician Relationship Specialty Start Date End Date Elsewhere, Pcp PCP - General Internal Medicine 03/29/21
--- OUTSIDE RECORDS SUMMARY | 2023-05-25 09:13 | XMS_ITS | Clinical Summary ---
Author Name Unknown Organization [facility] Address [address] [place] [address] Care Team Providers Care Editor Name Role Phone Elsewhere, Pcp Primary Care Provider Unavailabl e Source Comments Patient records contain information from all sites at [facility]. For routine questions regarding patient records, call [phone] during business hours, M-F 8:00 AM - 5:00 PM Central Time. Record requests for emergency care only can be directed to [phone] at any time.[facility] Allergies Active Allergy Reactions Criticality Noted Date [...] How often do you attend chur or adventist services? More than 4 times per year 03/27/2021 Do you belong to any clubs o r organizations such as yarsani groups, unions, fraternal [...] medical care, and heating? Patient declined 03/27/2021 [facility] - Occupational Stress Questionnaire Answer Date [...] place to sleep or slept in a prison (including now)? No 03/27/2021 Nutrition Answer Date [...] Sex Assigned at Female 03/27/2021 5:56 PM CASING COOKER Gender Identity Female 03/27/2021 5:56 PM CASING COOKER Sexual Orientation Straight 03/27/2021 5: 56 PM CASING COOKER Last Filed Vital Signs Vital Sign Reading [...] 12/15/1995 DTaP,Tdap,and Td Vaccines (1 - Tdap) 10/03/201809/10 Creatinine Level (Kidney Fun ction Test) 01/18/2021 01/19/2020 Potassium Level 01/18/2021 01/19/2020 Sodium Level 01/18/2021 01/19/2020 COVID-19 Vaccine ( - season) 2022, 04/17/2020 Influenza Vaccine (#1) 2022 04/08/2017 Depression Screening (Annual PHQ-2) 02/09/2023 Fall Risk Screen (Annual) 02/09/2023 Pneumococcal vaccine (65+ years) Completed 10/02/2018, 04/08/2017, 04/12/2015 Procedures Procedure Name Priority Date/Time Associated Diagnosis Comments COMPREHENSIVE METABOLIC PANEL, S/P Routine 01/19/2020 7:23 AM CASING COOKER Seizure (HCC) from Last 3 Months or Most Recently Relevant to Health Maintenance Results * (ABNORMAL) Comprehensive Metabolic Panel (01/19/2020 7:23 AM CASING COOKER) Potassium, S 4.7 3.6 - 5.2 mmol/L 01/19/2020 8:39 AM CASING COOKER DTL Sodium, S 139 135 - 145 mmol/L 01/19/2020 8:39 AM CASING COOKER DTL Chloride, S 102 98 - 107 mmol/L 01/19/2020 8:39 AM CASING COOKER DTL Bicarbonate, S 23 22 - 29 mmol/L 01/19/2020 8:39 AM CASING COOKER DTL Anion Gap 14 7 - 15 01/19/2020 8:39 AM CASING COOKER DTL BUN (Blood Urea Nitrogen), S 10 6 - 21 mg/dL 01/19/2020 8:39 AM CASING COOKER DTL Creatinine 0.71 0.59 - 1.04 mg/dL 01/19/2020 8:39 AM CASING COOKER DTL eGFR-Non Black/ 84 >=60 mL/min/BS A 01/19/2020 8:39 AM CASING COOKER DTL Comment: ----ADDITIONAL INFORMATION---- Estimated GFR calculated using the 2009 CKD_EPI creatinine equation. eGFR-Black/ >90 >=60 mL/min/BS A 01/19/2020 8:39 AM CASING COOKER DTL Comment: ----ADDITIONAL INFORMATION---- Estimated GFR calculated using the 2009 CKD_EPI creatinine equation. Calcium, Total, S 10.3(H) 8.8 - 10.2 mg/dL 01/19/2020 8:39 AM CASING COOKER DTL Glucose, S 87 70 - 140 mg/dL 01/19/2020 8:39 AM CASING COOKER DTL Protein, Total, S 8.1(H) 6.3 - 7.9 g/dL 01/19/2020 8:39 AM CASING COOKER DTL Albumin, S 4.7 3.5 - 5.0 g/dL 01/19/2020 8:39 AM CASING COOKER DTL Aspartate Aminotransferase (AST), S 20 8 - 43 U/L 01/19/2020 8:39 AM CASING COOKER DTL Alkaline Phosphatase, S 78 35 - 104 U/L 01/19/2020 8:39 AM CASING COOKER DTL Alanine Aminotransferase (ALT), S 20 7 - 45 U/L 01/19/2020 8:39 AM CASING COOKER DTL Bilirubin, Total, S 0.3 <=1.2 mg/dL 01/19/2020 8:39 AM CASING COOKER DTL Blood (Blood, Venous) 01/19/2020 7:23 AM CASING COOKER 01/19/2020 7:56 AM CASING COOKER Jason B Manuelito M.D., M.P.H. LAB BLOOD A DD-ON [facility] [address] [place] [address], [place] DTL [facility] [address] [place] [address] from Last 3 Months or Most Recently Relevant to Health Maintenance Care Teams Editor Relationship Specialty Start Date End Date Elsewhere, Pcp PCP - General Internal Medicine 03/29/21
--- OUTSIDE RECORDS SUMMARY | 2023-05-25 09:13 | XMS_ITS ---
Author Name Unknown Organization [facility] Address [address] [place] [address] Care Team Providers Care Correctional Corporal Name Role Phone Unavailable Unavailable Unavailable Surgery Details Not on file Complications Check Surgery Details section. Procedure Estimated Blood Loss Check Surgery Details section. Procedure Findings Check Surgery Details section. Procedure Specimens Taken Check Surgery Details section.
== END 2023-05-25 09:11 | disposition home or self-care (01) ==
PROVIDERS: PCP Family Medicine; Visit Provider Family Medicine
DX: E78.5 Hyperlipidemia, unspecified (principal); I10 Essential (primary) hypertension; R63.4 Abnormal weight loss; Z13.29 Encounter for screening for other suspected endocrine disorder
CPT/HCPCS: 80053; 80061; 84443

== ENCOUNTER 2024-01-06 09:04 | Outpatient (CLI) | payer BC, SELFPAY ==
--- OUTSIDE RECORDS SUMMARY | 2024-01-06 09:08 | XMS_ITS | Encounter Summary ---
Author Organization [facility] Address [address] [place] [address] Care Team Providers Care Visitor Services Assistant Name Role Phone Elsewhere, Pcp Primary Care Provider Unavailabl e Encounter Details Date Type Department Care Team (Late st Contact Info) Description 12/02/2023 Orders Only Department of Neurology in [place], [place] [address] [place] [phone] Laina Carvajal M.D. 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 More than 4 times per year 03/27/2021 Do you belong to any clubs o r organizations such as druze groups, unions, fraternal or athletic groups, or [...] medical care, and heating? Patient declined 03/27/2021 [facility] - Occupational Stress Questionnaire Answer Date Recorded [...] money to buy more. Never true 03/27/19 22 Within the past 12 months, t he [...] or slept in a fdc (including now)? No 03/27/2021 Nutrition Answer Date [...] degree you have received? 3rd grade 03/27/2021 Comments Unknown Sex and Gender Information Value Date Recorded Sex Assigned at Female 03/27/2021 5:56 PM FINANCIAL SERVICE REPRESENTATIVE Legal Sex Female 10:41 AM FINANCIAL SERVICE REPRESENTATIVE Gender Identity Female 03/27/2021 5:56 PM FINANCIAL SERVICE REPRESENTATIVE Sexual Orientation Straight 03/27/2021 5: 56 PM FINANCIAL SERVICE REPRESENTATIVE documented as of this encounter Plan of Treatment Upcoming Encounters Date Type Department Care Team (Late st Contact Info) Description 02/23/2024 7:50 AM FINANCIAL SERVICE REPRESENTATIVE Appointment Department of Laboratory Medicine and Pathology, [facility], in [place], [place] [address] [place] [address] Laina Carvajal M.D. [address] [place] [phone] 02/23/2024 2:00 PM FINANCIAL SERVICE REPRESENTATIVE Office Visit Department of Neurology in [place], [place] [address] [place] [address] Laina Carvajal M.D. 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
--- OUTSIDE RECORDS SUMMARY | 2024-01-06 09:08 | XMS_ITS | Encounter Summary ---
Author Organization [facility] Address [address] [place] [id number] Care Team Providers Care Diabetes Physician Name Role Phone Elsewhere, Pcp Primary Care Provider Unavailabl e Encounter Details Date Type Department Care Team (Late st Contact Info) Description 12/02/2023 Clinical Communication Department of Neurology in [place], [place] [address] [place] [phone] Laina Carvajal M.D. [address] [place] [address] Social History Tobacco Use Types Packs/Day Years [...] often do you attend chur ch or advent services? More than 4 times per year 03/27/2021 Do you belong to any clubs o r organizations such as tenriism groups, unions, fraternal or athletic groups, or [...] medical care, and heating? Patient declined 03/27/2021 [facility] Occupat ional [facility] - Occupational Stress Questionnaire Answer Date [...] or rent on time? Patient refused 03/27/19 22 In the last 12 months, how many places have you lived? 1 03/27/2021 In the last 12 months, was t here a time when you did not have a steady place to sleep or slept in a senior living (including now)? No 03/27/2021 Nutrition Answer Date [...] Sex Assigned at Female 03/27/2021 5:56 PM NURSE STAFF [facility]ITY [facility] Legal Sex Female 10:41 AM NURSE STAFF [facility] Gender Identity Female 03/27/2021 5:56 PM NURSE STAFF [facility] Sexual Orientation Straight 03/27/2021 5: 56 PM NURSE STAFF [facility] documented as of this encounter Plan of Treatment Upcoming Encounters Date Type Department Care Team (Late st Contact Info) Description 02/23/2024 7:50 AM NURSE STAFF [facility]ITY [facility] Appointment Department of Laboratory Medicine and Pathology, [facility], in [place], [place] [address] [place] [address] Laina Carvajal M.D. [address] [place] [phone] 02/23/2024 2:00 PM NURSE STAFF [facility] Office Visit Department of Neurology in [place], [place] [address] [place] [phone] Laina Carvajal M.D. [address] [place] [address] documented as of this encounter Visit Diagnoses Not on filedocumented in this encounter Care Teams Diabetes Physician Relationship Specialty Start Date End Date Elsewhere, Pcp PCP - General Internal Medicine 03/29/21 documented as of this encounter
--- OUTSIDE RECORDS SUMMARY | 2024-01-06 09:08 | XMS_ITS | Referral Summary ---
Author Organization [facility] Address [address] [place] [address] Care Team Providers Care Power Transformer Repair Supervisor Name Role Phone Elsewhere, Pcp Primary Care Provider Unavailabl e Source Comments Patient records contain information from all sites at [facility]. For routine questions regarding patient records, call [phone] during business hours, M-F 8:00 AM - 5:00 PM Central Time. Record requests for emergency care only can be directed to [phone] at any time.[facility] Encounters Date Type Department Care Team Description 12/02/2023 Orders Only Department of Neurology in [place], [place] [address] [place] [address] Laina Carvajal M.D. 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 from Last 3 Months Allergies Active Allergy Reactions Criticality Noted Date Comments Aspirin Other (see comments) 01/18/2020 Can't take regular aspirin due to stomach ulcer Pineapple Other (see comments) 01/18/2020 Acid cuts her mouth Shrimp Anaphylaxis 01/18/2020 Throat swells Medications amLODIPine (NORVASC) 10 mg tablet Take 10 mg by mouth daily. 12/21/2019 Active lisinopriL (PRINIVIL,ZESTRI L) 30 mg tablet Take 30 mg by [...] week. 03/20/2021 Active lamoTRIgine (LaMICtaL) 100 mg tabletIndication s:Focal Complex Partial Epilepsy Not Intractable Without Status [...] How often do you attend chur or alevism services? More than 4 times per year 03/27/2021 Do you belong to any clubs o r organizations such as buddhism groups, unions, fraternal or athletic groups, or [...] medical care, and heating? Patient declined 03/27/2021 [facility] of Occupat ional Health - Occupational Stress [...] or slept in a detention (including now)? No 03/27/2021 Nutrition Answer Date [...] Sex Assigned at Female 03/27/2021 5:56 PM AD COPY WRITER Legal Sex Female 10:41 AM AD COPY WRITER Gender Identity Female 03/27/2021 5:56 PM AD COPY WRITER Sexual Orientation Straight 03/27/2021 5: 56 PM AD COPY WRITER Last Filed Vital Signs Vital Sign Reading Time Taken Comments Blood Pressure - - Pulse - - Temperature - - Respiratory Rate - - Oxygen Saturation - - Inhaled Oxygen Concentration - - Weight 61.2 kg (135 lb) 06/19/2021 12:49 PM CDT Height 162.6 cm (5' 4) 06/19/2021 12:49 PM CDT Body Mass Index 23.17 06/19/2021 12:49 PM CDT Plan of Treatment Upcoming Encounters Date Type Department Care Team (Late st Contact Info) Description 02/23/2024 7:50 AM AD COPY WRITER Appointment Department of Laboratory Medicine and Pathology, [facility], in [place], [place] [address] [place] [phone] Laina Carvajal M.D. 200 [place] [phone] 02/23/2024 2:00 PM AD COPY WRITER Office Visit Department of Neurology in [place], [place] [address] [place] [phone] [place] [phone] Procedures Procedure Name Priority Date/Time Associated Diagnosis Comments COMPREHENSIVE METABOLIC PANEL, S/P Routine 01/19/2020 7:23 AM AD COPY WRITER Seizure (HCC) from Last 3 Months or Most Recently Relevant to Health Maintenance Results * (ABNORMAL) Comprehensive Metabolic Panel (01/19/2020 7:23 AM AD COPY WRITER) Potassium, S 4.7 3.6 - 5.2 mmol/L 01/19/2020 8:39 AM AD COPY WRITER DTL Sodium, S 139 135 - 145 mmol/L 01/19/2020 8:39 AM AD COPY WRITER DTL Chloride, S 102 98 - 107 mmol/L 01/19/2020 8:39 AM AD COPY WRITER DTL Bicarbonate, S 23 22 - 29 mmol/L 01/19/2020 8:39 AM AD COPY WRITER DTL Anion Gap 14 7 - 15 01/19/2020 8:39 AM AD COPY WRITER DTL BUN (Blood Urea Nitrogen), S 10 6 - 21 mg/dL 01/19/2020 8:39 AM AD COPY WRITER DTL Creatinine 0.71 0.59 - 1.04 mg/dL 01/19/2020 8:39 AM AD COPY WRITER DTL eGFR-Non Black/ 84 >=60 mL/min/BS A 01/19/2020 8:39 AM AD COPY WRITER DTL Comment: ----ADDITIONAL INFORMATION---- Estimated GFR calculated using the 2009 CKD_EPI creatinine equation. eGFR-Black/ >90 >=60 mL/min/BS A 01/19/2020 8:39 AM AD COPY WRITER DTL Comment: ----ADDITIONAL INFORMATION---- Estimated GFR calculated using the 2009 CKD_EPI creatinine equation. Calcium, Total, S 10.3(H) 8.8 - 10.2 mg/dL 01/19/2020 8:39 AM AD COPY WRITER DTL Glucose, S 87 70 - 140 mg/dL 01/19/2020 8:39 AM AD COPY WRITER DTL Protein, Total, S 8.1(H) 6.3 - 7.9 g/dL 01/19/2020 8:39 AM AD COPY WRITER DTL Albumin, S 4.7 3.5 - 5.0 g/dL 01/19/2020 8:39 AM AD COPY WRITER DTL Aspartate Aminotransferase (AST), S 20 8 - 43 U/L 01/19/2020 8:39 AM AD COPY WRITER DTL Alkaline Phosphatase, S 78 35 - 104 U/L 01/19/2020 8:39 AM AD COPY WRITER DTL Alanine Aminotransferase (ALT), S 20 7 - 45 U/L 01/19/2020 8:39 AM AD COPY WRITER DTL Bilirubin, Total, S 0.3 <=1.2 mg/dL 01/19/2020 8:39 AM AD COPY WRITER DTL Blood (Blood, Venous) 01/19/2020 7:23 AM AD COPY WRITER 01/19/2020 7:56 AM AD COPY WRITER Jason Billings M.D., M.P.H. LAB BLOOD ADD-ON Fi nal Result [facility] [address] [place] [address], [place] DTL [facility] [address] [place] [address] from Last 3 Months or Most Recently Relevant to Health Maintenance Insurance [facility] Care Teams Power Transformer Repair Supervisor Relationship Specialty Start Date End Date Elsewhere, Pcp PCP - General Internal Medicine 03/29/21
--- OUTSIDE RECORDS SUMMARY | 2024-01-06 09:08 | XMS_ITS | Clinical Summary ---
Author Organization [facility] Address [address] [place] [address] Care Team Providers Care Training Coordinator Name Role Phone Elsewhere, Pcp Primary Care Provider Unavailabl e Source Comments Patient records contain information from all sites at [facility]. For routine questions regarding patient records, call [phone] during business hours, M-F 8:00 AM - 5:00 PM Central Time. Record requests for emergency care only can be directed to [phone] at any time.[facility] Allergies Active Allergy Reactions Criticality Noted Date [...] a day. 180 tablet 3 02/25/2022 Active Encounters Date Type Department Care Team Description 12/02/2023 Orders Only Department of Neurology in [place], [place] [address] [place] [address] Laina Carvajal M.D. 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 from Last 3 Months Social History Tobacco Use Types Packs/Day Years [...] often do you attend chur ch or taoism services? More than 4 times per year 03/27/2021 Do you belong to any clubs o r organizations such as holiness groups, unions, fraternal or athletic groups, or [...] medical care, and heating? Patient declined 03/27/2021 [facility] Occupat ional Health - Occupational [...] Sex Assigned at Female 03/27/2021 5:56 PM ADZING AND BORING MACHINE FEEDER Legal Sex Female 10:41 AM ADZING AND BORING MACHINE FEEDER Gender Identity Female 03/27/2021 5:56 PM ADZING AND BORING MACHINE FEEDER Sexual Orientation Straight 03/27/2021 5: 56 PM ADZING AND BORING MACHINE FEEDER Last Filed Vital Signs Vital Sign Reading [...] st Contact Info) Description 02/23/2024 7:50 AM ADZING AND BORING MACHINE FEEDER Appointment Department of Laboratory Medicine and Pathology, [facility], in [place], [place] [address] [place] [phone] Laina Carvajal M.D. 200 [place] [phone] 02/23/2024 2:00 PM ADZING AND BORING MACHINE FEEDER Office Visit Department of Neurology in [place], [place] [address] [place] [phone] Lain[place] [phone] Health Maintenance Due Date Last Done Comments Hepatitis C Screening 1945 Zoster Vaccines (1 of 2) 12/15/1995 DTaP,Tdap,and Td Vaccines (1 - Tdap) 10/03/2018 10/02/2018 RSV vaccine - (32-3 6 weeks) or 60+ years (1 - 1-dose 75+ series) 2020 Creatinine Level (Kidney Function Test) 01/18/2021 01/19/2020 Potassium Level 01/18/2021 01/19/2020 Sodium Level 01/18/2021 01/19/2020 Depression Screening (Annual PHQ-2) 02/09/2023 Fall Risk Screen (Annual) 02/09/2023 COVID-19 Vaccine (3 - 2023-2 5 season) 2023 05/08/2020, 04/17/2020 Influenza Vaccine (#1) 2023 04/08/2017 Pneumococcal vaccine (65+ years) Completed 10/02/2018, 04/08/2017, 04/12/2015 IPV Vaccines Aged Out No longer eligi ble based on patient's age to complete this topic Procedures Procedure Name Priority Date/Time Associated Diagnosis Comments COMPREHENSIVE METABOLIC PANEL, S/P Routine 01/19/2020 7:23 AM ADZING AND BORING MACHINE FEEDER Seizure (HCC) from Last 3 Months or Most Recently Relevant to Health Maintenance Results * (ABNORMAL) Comprehensive Metabolic Panel (01/19/2020 7:23 AM ADZING AND BORING MACHINE FEEDER) Potassium, S 4.7 3.6 - 5.2 mmol/L 01/19/2020 8:39 AM ADZING AND BORING MACHINE FEEDER DTL Sodium, S 139 135 - 145 mmol/L 01/19/2020 8:39 AM ADZING AND BORING MACHINE FEEDER DTL Chloride, S 102 98 - 107 mmol/L 01/19/2020 8:39 AM ADZING AND BORING MACHINE FEEDER DTL Bicarbonate, S 23 22 - 29 mmol/L 01/19/2020 8:39 AM ADZING AND BORING MACHINE FEEDER DTL Anion Gap 14 7 - 15 01/19/2020 8:39 AM ADZING AND BORING MACHINE FEEDER DTL BUN (Blood Urea Nitrogen), S 10 6 - 21 mg/dL 01/19/2020 8:39 AM ADZING AND BORING MACHINE FEEDER DTL Creatinine 0.71 0.59 - 1.04 mg/dL 01/19/2020 8:39 AM ADZING AND BORING MACHINE FEEDER DTL eGFR-Non Black/ 84 >=60 mL/min/BS A 01/19/2020 8:39 AM ADZING AND BORING MACHINE FEEDER DTL Comment: ----ADDITIONAL INFORMATION---- Estimated GFR calculated using the 2009 CKD_EPI creatinine equation. eGFR-Black/ >90 >=60 mL/min/BS A 01/19/2020 8:39 AM ADZING AND BORING MACHINE FEEDER DTL Comment: ----ADDITIONAL INFORMATION---- Estimated GFR calculated using the 2009 CKD_EPI creatinine equation. Calcium, Total, S 10.3(H) 8.8 - 10.2 mg/dL 01/19/2020 8:39 AM ADZING AND BORING MACHINE FEEDER DTL Glucose, S 87 70 - 140 mg/dL 01/19/2020 8:39 AM ADZING AND BORING MACHINE FEEDER DTL Protein, Total, S 8.1(H) 6.3 - 7.9 g/dL 01/19/2020 8:39 AM ADZING AND BORING MACHINE FEEDER DTL Albumin, S 4.7 3.5 - 5.0 g/dL 01/19/2020 8:39 AM ADZING AND BORING MACHINE FEEDER DTL Aspartate Aminotransferase (AST), S 20 8 - 43 U/L 01/19/2020 8:39 AM ADZING AND BORING MACHINE FEEDER DTL Alkaline Phosphatase, S 78 35 - 104 U/L 01/19/2020 8:39 AM ADZING AND BORING MACHINE FEEDER DTL Alanine Aminotransferase (ALT), S 20 7 - 45 U/L 01/19/2020 8:39 AM ADZING AND BORING MACHINE FEEDER DTL Bilirubin, Total, S 0.3 <=1.2 mg/dL 01/19/2020 8:39 AM ADZING AND BORING MACHINE FEEDER DTL Blood (Blood, Venous) 01/19/2020 7:23 AM ADZING AND BORING MACHINE FEEDER 01/19/2020 7:56 AM ADZING AND BORING MACHINE FEEDER Jason Billings M.D., M.P.H. LAB BLOOD ADD-ON Fi nal Result [facility] [address] [place] [address], [facility] DTL [facility] [address] [place] [address] from Last 3 Months or Most Recently Relevant to Health Maintenance Insurance [facility] [place] [address] Care Teams Training Coordinator Relationship Specialty Start Date End Date Elsewhere, Pcp PCP - General Internal Medicine 03/29/21
--- OUTSIDE RECORDS SUMMARY | 2024-01-06 09:08 | XMS_ITS ---
Author Organization [facility] Address [address] [place] [address] Care Team Providers Care Machine Tool Operator Name Role Phone Unavailable Unavailable Unavailable Surgery Details Not on file Complications Check Surgery Details section. Procedure Estimated Blood Loss Check Surgery Details section. Procedure Findings Check Surgery Details section. Procedure Specimens Taken Check Surgery Details section.
== END 2024-01-06 09:05 | disposition home or self-care (01) ==
PROVIDERS: PCP Family Medicine; Visit Provider Family Medicine
DX: I10 Essential (primary) hypertension (principal); E78.5 Hyperlipidemia, unspecified; M79.606 Pain in leg, unspecified
CPT/HCPCS: 80048; 82550

== ENCOUNTER 2024-03-09 10:01 | Emergency (ER) | payer BC, SELFPAY ==
[2024-03-09 10:16] VITALS: BP 185/66; PULSE 70; RESP 16; TEMP 36.1; O2SAT 98
--- NOTE | 2024-03-09 11:02 | ED.GENADULT ---
HPI - General Adult General Chief complaint: Cough Stated complaint: headache and chest pain Time Seen by Provider: 03/09/24 10:52 History of Present Illness HPI narrative: This 78-year-old female comes in with a family member reporting cough and associated chest and back discomfort when coughing. [employer] services are used for this encounter. The family member states that symptoms began about 3 weeks ago. She did see a primary physician and it was deemed a viral upper respiratory infection. She has been taking tea but no other medicines to treat her symptoms. She states that her cough is worse recently. She arrives here with normal vital signs except blood pressure is elevated. Related Data Home Medications ?Medication ?Instructions ?Recorded ?Confirmed acetaminophen 500 mg tablet 500 mg PO Q6H PRN 12/17/21 03/09/24 aspirin 81 mg tablet,delayed 81 mg PO DAILY 12/17/21 03/09/24 release omeprazole 20 mg capsule,delayed 20 mg PO DAILY 12/17/21 02/17/24 release vitamin B comp and C no.3 15 mg-10 1 cap PO QDAY 05/25/23 02/17/24 mg-50 mg-5 mg-300 mg capsule (B Complex Plus Vitamin C) vitamin c PO 05/25/23 02/17/24 carboxymethylcellulose sodium 0.5 1 drp ophthalmic (eye) DAILY PRN 01/06/24 02/17/24 % eye drops (Refresh Tears) Previous Rx's ?Medication ?Instructions ?Recorded alendronate 70 mg tablet 70 mg PO QWEEK #12 tabs 05/25/23 amlodipine 10 mg tablet 10 mg PO DAILY #90 tabs 05/25/23 lamotrigine 100 mg tablet 100 mg PO BID #180 tabs 05/25/23 lisinopril 40 mg tablet 40 mg PO QDAY #90 tabs 05/25/23 rosuvastatin 20 mg tablet 20 mg PO QDAY #90 tabs 05/25/23 celecoxib 200 mg capsule 200 mg PO QDAY PRN pain #90 caps 01/06/24 chlorthalidone 25 mg tablet 25 mg PO QDAY #90 tabs 02/17/24 acetaminophen 300 mg-codeine 30 mg 1 tab PO Q6H PRN pain #15 tabs 03/09/24 tablet Allergies Allergy/AdvReac Type Severity Reaction Status Date / Time pineapple Allergy Severe itching Verified 02/17/24 08:40 throat and tongue Shrimp Flavor Allergy Severe itchy Uncoded 02/17/24 08:40 throat and tongue Review of Systems Status of ROS: Reports: 10 or more systems reviewed and unremarkable except as noted in History and below Narrative: Constitutional: No fevers, no weight gain or loss. Eyes: No discharge. No vision changes. HENT: No congestion, no sore throat, no ear pain. Cardiovascular: No chest pain, no palpitations. Respiratory: No shortness of breath, no wheezes. Frequent cough with associated chest and back discomfort. Gastrointestinal: No abdominal pain, no vomiting, no diarrhea. Genitourinary: No dysuria, no hematuria. Musculoskeletal: Normal range of motion. Skin: No rashes, no pruritis. Neurological: No dizziness, weakness, sensory change, speech change. Endo/Heme/Allergies: No bruising or bleeding. No polydipsia. Pysch: no suicidality, no anxiety, no insomnia. All other systems reviewed and are negative. [facility] Medical History Hypertension ?I10 - Essential (primary) hypertension (ICD-10) Hyperlipidemia ?E78.5 - Hyperlipidemia, unspecified (ICD-10) Status post CVA ?Z86.73 - Personal history of transient ischemic attack (TIA), and cerebral infarction without residual deficits (ICD-10) Seizure disorder ?G40.909 - Epilepsy, unspecified, not intractable, without status epilepticus (ICD-10) Osteoporosis ?M81.0 - Age-related osteoporosis without current pathological fracture (ICD-10) Chronic shoulder pain ?M25.519 - Pain in unspecified shoulder (ICD-10) ?G89.29 - Other chronic pain (ICD-10) GERD (gastroesophageal reflux disease) ?K21.9 - Gastro-esophageal reflux disease without esophagitis (ICD-10) Dysphagia ?R13.10 - Dysphagia, unspecified (ICD-10) Gastric ulcer ?K25.9 - Gastric ulcer, unspecified as acute or chronic, without hemorrhage or perforation (ICD-10) Lumbar spinal stenosis ?M48.061 - Spinal stenosis, lumbar region without neurogenic claudication (ICD-10) Surgical History Status post hysterectomy ?Z90.710 - Acquired absence of both cervix and uterus (ICD-10) Status post tubal ligation ?Z98.51 - Tubal ligation status (ICD-10) Social History What is your current living situation?: I presently have a place to live Problems where you live: no known problems In the past 12 months, utilities in danger of being shut off: no In past 12 months, lack of transportation kept you from medical appts, meetings, work, or getting things needed for daily living: no In the past 12 mos, have been you worried that your food would run out before you had money to buy more?: never true In the past 12 mos, the food you bought just didn't last and you didn't have money to buy more?: never true Smoking Status: Never smoker How often do you have a drink containing alcohol: never AUDIT-C Alcohol total score: 0 Non-prescribed substance use: denies use How often does anyone, including family, friends and others, physically hurt you: never How often does anyone, including family, friends and others, insult or talk down to you: never How often does anyone, including family, friends and others, threaten you with harm: never How often does anyone, including family, friends and others, scream or curse at you: never Exam Narrative: Exam Narrative: Constitutional: Well-developed, well-nourished, no acute distress. HEENT: Normocephalic, atraumatic. Neck: Normal range of motion. Nontender. Supple. Heart: Regular. No murmurs. Normal rate. Intact distal pulses. Lungs: Clear to auscultation. No wheezes, rhonchi, or rales. Pain in her airway when coughing. Abdomen: Normal bowel sounds. Nontender. No rebound tenderness. Genitalia: Deferred. Back: No midline tenderness. Normal range of motion. Extremities: Normal range of motion. No injury. Skin: Intact. No rash. Warm. No erythema or pallor. Neurologic: No altered sensation. No weakness. Alert and oriented. Psychiatric: No suicidality. No anxiety or depression. No insomnia. Nursing notes and vitals signs are reviewed. Const: Vital Signs, click to edit/add: Vital Signs - 24 hr 03/09/24 10:16 Temperature 97 F L Pulse Rate [Pulse Oximeter] 70 Respiratory Rate 16 Blood Pressure [Ri ght Upper Arm] 185/66 H Pulse Oximetry 98 Oxygen Delivery Me thod Room Air Course Vital Signs Vital signs: Initial Vital Signs Temperature 97 F L 03/09/24 10:16 Temperature Source Temporal Artery Scan 03/09/24 10:16 Pulse Rate 70 03/09/24 10:16 Respiratory Rate 16 03/09/24 10:16 Blood Pressure 185/66 H 03/09/24 10:16 Blood Pressure Mean 105 03/09/24 10:16 Blood Pressure Position Sitting 03/09/24 10:16 Pulse Oximetry 98 03/09/24 10:16 Oxygen Delivery Method Room Air 03/09/24 10:16 Vital Signs Temperature 97 F L 03/09/24 10:16 Pulse Rate 70 03/09/24 10:16 Respiratory Rate 16 03/09/24 10:16 Blood Pressure 185/66 H 03/09/24 10:16 Pulse Oximetry 98 03/09/24 10:16 Oxygen Delivery Method Room Air 03/09/24 10:16 Temperature 97 F L 03/09/24 10:16 Pulse Rate 70 03/09/24 10:16 Respiratory Rate 16 03/09/24 10:16 Blood Pressure 185/66 H 03/09/24 10:16 Pulse Oximetry 98 03/09/24 10:16 Oxygen Delivery Method Room Air 03/09/24 10:16 Medications Administered Medications: Discontinued Medications Generic Name Dose Route Start Last Admin Trade Name Freq PRN Reason Stop Dose Admin Dexamethasone 10 mg 03/09/24 11:01 03/09/24 11:14 Dexamethasone 10 Mg/Ml Inj PO 03/09/24 11:02 10 mg ONCE ONE Administration Medical Decision Making MDM Narrative Medical decision making narrative: This patient comes in reporting cough and associated discomfort in her chest and back. She arrives with normal vital signs. She has had symptoms on and off for the past 3 weeks. Nasal pharyngeal swab returns negative for viruses tested. A chest x-ray is also obtained and shows no acute findings. The patient did receive an oral dose of dexamethasone 10 mg. I did also provide a prescription for Tylenol 3 which should help with cough and discomfort. Lab Data Labs: Lab Results 03/09/24 Range/Units Unknown SARS-CoV-2 (PCR) Negative SARS-CoV-2 (Negative) Influenza Type A (PCR) Negative PCR FLU A (Negative) Influenza Type B (PCR) Negative PCR FLU B (Negative) RSV (PCR) Negative PCR RSV (Negative) Imaging Data Chest x-ray: Radiologist's impression: No acute cardiopulmonary disease is seen. Discharge Plan Discharge Clinical Impression: Acute upper respiratory infection Patient Disposition: Home w/ Parent or Adult Condition: Stable Additional Instructions: Take medication as prescribed. Use [id number] medicines also as needed and directed. Follow up with MD return if worsening. Prescriptions: New acetaminophen-codeine 300-30 mg tablet 1 tab PO Q6H PRN (Reason: pain) Qty: 15 0RF No Action chlorthalidone 25 mg tablet 25 mg PO QDAY Qty: 90 3RF aspirin 81 mg tablet,delayed release (DR/EC) 81 mg PO DAILY acetaminophen 500 mg tablet 500 mg PO Q6H PRN Rx Instructions: NO MORE THAN 4000 MG/DAY omeprazole 20 mg capsule,delayed release(DR/EC) 20 mg PO DAILY vitamin c PO B Complex Plus Vitamin C 21-19-87-5-300 mg capsule 1 cap PO QDAY Rx Instructions: give with food (meal/snack) alendronate 70 mg tablet 70 mg PO QWEEK Qty: 12 3RF amlodipine 10 mg tablet 10 mg PO DAILY Qty: 90 3RF lamotrigine 100 mg tablet 100 mg PO BID Qty: 180 3RF rosuvastatin 20 mg tablet 20 mg PO QDAY Qty: 90 3RF lisinopril 40 mg tablet 40 mg PO QDAY Qty: 90 3RF carboxymethylcellulose sodium [Refresh Tears] 0.5 % drops 1 drp ophthalmic (eye) DAILY PRN celecoxib 200 mg capsule 200 mg PO QDAY PRN (Reason: pain) Qty: 90 3RF Follow Up/Referrals: Erasto Singleton MD [Primary Care Provider] - Stand Alone Forms: Fatigue Science Info Instructions
[2024-03-09] MEDS: dexAMETHasone 10 MG/ML inj PO (11:14)
[2024-03-09 11:15] LABS: PCR FLU A Negative PCR FLU A (Negative); PCR FLU B Negative PCR FLU B (Negative); PCR RSV Negative PCR RSV (Negative); SARS PCR* Negative SARS-CoV-2 (Negative)
== END 2024-03-09 12:24 | disposition home or self-care (01) ==
PROVIDERS: Emergency Provider Emergency Medicine Emergency Medical Services; PCP Family Medicine
DX: J06.9 Acute upper respiratory infection, unspecified (principal)
CPT/HCPCS: 71046; 87631; 99283; 99284; T1013; J1100

== ENCOUNTER 2024-06-14 10:40 | Outpatient (CLI) | payer BC, SELFPAY | END 2024-06-14 10:41 | disposition home or self-care (01) | LOC: LKVREF 10:41 | PROVIDERS: PCP Family Medicine; Visit Provider Family Medicine | DX: I10 Essential (primary) hypertension (principal) | CPT/HCPCS: 80053 ==

== ENCOUNTER 2024-07-27 07:52 | Outpatient (CLI) | payer BC, SELFPAY ==
--- NOTE | 2024-07-27 08:00 | CRLHL7_ITS ---
For Patients: As a result of the Century Cures Act, medical imaging exams and procedure reports are released immediately into your electronic medical record. You may view this report before your referring provider. If you have questions, please contact your health care provider. Indication: Dysphagia. Technique: Contrast-enhanced CT of the neck multiplanar reconstruction utilizing 57 cc Isovue 370 iodinated intravenous contrast. Comparison: None available. Findings: Symmetric enlargement and striated enhancement of the palatine tonsils consistent with acute tonsillitis. No discrete rim enhancing abscess. Few mildly enlarged upper cervical lymph nodes which are likely reactive. Normal parotid and left submandibular glands. Fatty atrophy of the right submandibular gland. Unremarkable thyroid. The lung apices are clear. No aggressive osseous lesion is identified. The orbits and imaged intracranial structures are within normal limits. Impression: 1. Symmetric and enlargement and enhancement of the palatine tonsils consistent with acute suppurative tonsillitis. 2. No rim enhancing abscess. 3. Mild symmetric enlargement of few upper cervical lymph nodes which are likely reactive. Please note that all CT scans at this facility use dose modulation, iterative reconstruction, and/or weight-based dosing when appropriate to reduce radiation dose to as low as reasonably achievable. Dictated by Jaciel Bernard MD @ 07/28/2024 12:36:31 PM (Electronically Signed)
[2024-07-27 08:33] LABS: Creatinine* 0.8 mg/dL (0.5-1.5); Estimated Glomerular Filt Rate 75 ml/min
--- NOTE | 2024-07-27 09:15 | CRLHL7_ITS ---
For Patients: As a result of the Century Cures Act, medical imaging exams and procedure reports are released immediately into your electronic medical record. You may view this report before your referring provider. If you have questions, please contact your health care provider. INDICATION: Dysphasia TECHNIQUE: Modified barium swallow. Fluoroscopic time 1 minutes 9 seconds. FINDINGS/IMPRESSION: Anatomical structures are normal. Swallowing mechanism appears within normal limits. No episodes of penetration or aspiration. Delayed esophageal transit noted. Dictated by Zeus Holliday MD @ 07/27/2024 10:57:21 AM (Electronically Signed)
--- NOTE | 2024-07-27 12:59 | SLP.MBS ---
SYSTEM TECHNOLOGIST Modified Barium Swallow SYSTEM TECHNOLOGIST Modified Barium Swallow Eval Start: 07/27/24 08:18 Text: Status: Active Freq: Protocol: Document 07/27/24 08:18 VICENTE (Rec: 07/27/24 08:29 VICENTE [id number]) E-signed By YAZAN Cheng Modified Barium Swallow Evaluation Evaluation Reason for Referral Chronic dysphagia with acute complaints of left tonsillar area pain when swallowing. Medical Diagnosis R13.10 dysphagia, unspecified Treatment Diagnosis dysphagia Date of Order 07/27/24 Type of Referral Evaluation Onset of Patient's Chronic dysphagia (3 years) with acute complaints of Problem pain when swallowing for past three months and food sticking. Pertinent Medical Patient has a history of stroke with mild right History hemiparesis, seizure, GERD, dysphagia, scoliosis, and thoracic kyphosis. Medications PPI 20mg in AM Pepcid in PM Hearing Status WNL Vision Status WNL Subjective/Pain Alethea endorses pain in the front of her neck and Comment feeling that food sticks. She states she has to have water close by to help get food down. She is eating less because she feels full and tends not to eat an evening meal. Assessment/ Alethea is a 78-year-old female with acute on chronic Impressions dysphagia and history of GERD. A video swallow study was completed per provider orders. Under fluoroscopy, patient presents with functional oropharyngeal swallow with impaired esophageal phase of the swallow. Oral phase functional, with good bolus control and adequate oral clearing. Pharyngeal phase is also functional with partial anterior excursion, adequate epiglottic inversion and one instance of flash penetration with large liquid bolus. Delayed esophageal transit noted in lateral and A/P view across consistencies. No aspiration noted on today's study. Education provided to patient and her daughter with use of laboratory courier. All questions answered and both verbalized understanding. Goals/Functional Patient will verbalize understanding of today's results Outcomes and recommendations. Goal met today. Mod Barium Swallow-Lat View Textures Lateral View Food Thin: IDDSI Level 0,Pureed,Regular Presentation Oral Phase Labial Closure No Impairment (WFL) Bolus Formation No Impairment (WFL) Pooling L/R Mastication Rotary No Impairment (WFL) Chew Lingual Movement No Impairment (WFL) Residue Clearing No Impairment (WFL) Pharyngeal Phase Swallow Response No Impairment (WFL) Delay Base of Tongue No Impairment (WFL) Epiglottic Coverage No Impairment (WFL) Laryngeal Elevation Minimal Impairment Vallecular Retention No Impairment (WFL) Clearing Pharyn. Wall Residue No Impairment (WFL) Clearing Piriform Sinus No Impairment (WFL) Retention Other Pharyngeal Timely swallow with adequate hyolaryngeal elevation Phase Observation with no penetration or aspiration. Mod Barium Swallow-A/P View Performed Mod Barium Swallow A Performed /P View Test Textures A/P View Food Pureed Presentation Observations A/P View Esophogeal Slowed Clearing Function Mod Barium Swallow Impressions Summary and Impressions Oral Phase No Impairment (WFL) Impression Oral Phase Summary Good bolus control with no oral residue after the swallows. Pharyngeal Phase No Impairment (WFL) Impression Pharyngeal Phase Timely swallow with adequate hyolaryngeal elevation Summary with no penetration or aspiration. Esophogeal Phase Moderate Impairment Impression Esophogeal Phase Delayed esophageal transit. Summary Barium Swallow Recommendations Diet Dietary Regular Recommendations Dietary Regular with thin adikieh-paaa-ibxxruayu softer food Recommendations items and adding moisture to foods. Comments Treatment/Strategies Strategy/Precaution Sitting Upright (90 deg),Small Bites and Sips,Alternate Recommend Liquids/Solids Strategy/Precaution Reflux precautions include stay upright for one hour Recommend Comments after meals, smaller more frequent meals, eat last meal three hours before bedtime, elevate head of bed 4-6 inches. Referrals/Other Recommended GI Consult Referrals Other Could consider GI consult to further assess esophageal Recommendations motility but patient is not sure she would want further testing. Modified Barium Swallow Education Education Topics Teaching Recipient Patient,Family Teaching Methods Verbal Response to Teaching Verbalize Understanding Therapist Signature/ Shadi Carvajal MS [facility]-SYSTEM TECHNOLOGIST #[id number] License Number Speech/Language Pathology Billing Units Billing Units Eval Swallow Motion 1 Fluoro
--- NOTE | 2024-07-27 13:00 | SLP.MBS ---
TITLE PROCESSOR Modified Barium Swallow TITLE PROCESSOR Modified Barium Swallow Eval Start: 07/27/24 08:18 Text: Status: Active Freq: Protocol: Document 07/27/24 08:18 VICENTE (Rec: 07/27/24 08:29 VICENTE [id number]) E-signed By YAZAN Cheng Modified Barium Swallow Evaluation Evaluation Reason for Referral Chronic dysphagia with acute complaints of left tonsillar area pain when swallowing. Medical Diagnosis R13.10 dysphagia, unspecified Treatment Diagnosis dysphagia Date of Order 07/27/24 Type of Referral Evaluation Onset of Patient's Chronic dysphagia (3 years) with acute complaints of Problem pain when swallowing for past three months and food sticking. Pertinent Medical Patient has a history of stroke with mild right History hemiparesis, seizure, GERD, dysphagia, scoliosis, and thoracic kyphosis. Medications PPI 20mg in AM Pepcid in PM Hearing Status WNL Vision Status WNL Subjective/Pain Alethea endorses pain in the front of her neck and Comment feeling that food sticks. She states she has to have water close by to help get food down. She is eating less because she feels full and tends not to eat an evening meal. Assessment/ Alethea is a 78-year-old female with acute on chronic Impressions dysphagia and history of GERD. A video swallow study was completed per provider orders. Under fluoroscopy, patient presents with functional oropharyngeal swallow with impaired esophageal phase of the swallow. Oral phase functional, with good bolus control and adequate oral clearing. Pharyngeal phase is also functional with partial anterior excursion, adequate epiglottic inversion and one instance of flash penetration with large liquid bolus. Delayed esophageal transit noted in lateral and A/P view across consistencies. No aspiration noted on today's study. Education provided to patient and her daughter with use of stunner and shackler. All questions answered and both verbalized understanding. Goals/Functional Patient will verbalize understanding of today's results Outcomes and recommendations. Goal met today. Mod Barium Swallow-Lat View Textures Lateral View Food Thin: IDDSI Level 0,Pureed,Regular Presentation Oral Phase Labial Closure No Impairment (WFL) Bolus Formation No Impairment (WFL) Pooling L/R Mastication Rotary No Impairment (WFL) Chew Lingual Movement No Impairment (WFL) Residue Clearing No Impairment (WFL) Pharyngeal Phase Swallow Response No Impairment (WFL) Delay Base of Tongue No Impairment (WFL) Epiglottic Coverage No Impairment (WFL) Laryngeal Elevation Minimal Impairment Vallecular Retention No Impairment (WFL) Clearing Pharyn. Wall Residue No Impairment (WFL) Clearing Piriform Sinus No Impairment (WFL) Retention Other Pharyngeal Timely swallow with adequate hyolaryngeal elevation Phase Observation with no penetration or aspiration. Mod Barium Swallow-A/P View Performed Mod Barium Swallow A Performed /P View Test Textures A/P View Food Pureed Presentation Observations A/P View Esophogeal Slowed Clearing Function Mod Barium Swallow Impressions Summary and Impressions Oral Phase No Impairment (WFL) Impression Oral Phase Summary Good bolus control with no oral residue after the swallows. Pharyngeal Phase No Impairment (WFL) Impression Pharyngeal Phase Timely swallow with adequate hyolaryngeal elevation Summary with no penetration or aspiration. Esophogeal Phase Moderate Impairment Impression Esophogeal Phase Delayed esophageal transit. Summary Barium Swallow Recommendations Diet Dietary Regular Recommendations Dietary Regular with thin aedzvjy-hzhs-oikfgiehn softer food Recommendations items and adding moisture to foods. Comments Treatment/Strategies Strategy/Precaution Sitting Upright (90 deg),Small Bites and Sips,Alternate Recommend Liquids/Solids Strategy/Precaution Reflux precautions include stay upright for one hour Recommend Comments after meals, smaller more frequent meals, eat last meal three hours before bedtime, elevate head of bed 4-6 inches. Referrals/Other Recommended GI Consult Referrals Other Could consider GI consult to further assess esophageal Recommendations motility but patient is not sure she would want further testing. Modified Barium Swallow Education Education Topics Teaching Recipient Patient,Family Teaching Methods Verbal Response to Teaching Verbalize Understanding Therapist Signature/ Shadi Carvajal MS [facility]-TITLE PROCESSOR #[id number] License Number Speech/Language Pathology Billing Units Billing Units Eval Swallow Motion 1 Fluoro
== END 2024-07-27 07:53 | disposition home or self-care (01) ==
LOC: CT 07:54
PROVIDERS: PCP Family Medicine; Visit Provider Otolaryngology
DX: R13.10 Dysphagia, unspecified (principal); J35.1 Hypertrophy of tonsils; R59.0 Localized enlarged lymph nodes
CPT/HCPCS: 36415; 70491; 74230; 82565; 92611; T1013; Q9967

== ENCOUNTER 2024-07-31 20:52 | Outpatient (CLI) | payer BC, SELFPAY ==
--- NOTE | 2024-08-09 11:19 | W.PM.SLEEP ---
Sleep Study Details Details Interpreting Provider: Rae Date of Sleep Study: 07/31/24 Sleep Study Details: STUDY TYPE:? Hospital-based, attended ? BMI:? 24 ORDERING PROVIDER:? Rae INDICATION:? Concern about sleep apnea ? SLEEP SUMMARY:? 337 minutes total sleep time RESPIRATORY SUMMARY:? Mean oxygen awake 91 asleep 90 minimum 83 76.6 minutes oxygen between 80 and 88% AHI 6.8 per CMS guideline, 18 per rule 1A Supine AHI 9.9 per CMS, 25.7 per rule 1A Supine REM AHI 0 PERIODIC LIMB MOVEMENTS OF SLEEP:? None CARDIAC:? Awake 65 asleep 58 no arrhythmias noted IMPRESSION:? Mild to moderate obstructive sleep apnea with significant desaturations RECOMMENDATION: Recommend trial of AutoSet CPAP pressure 4-17.
== END 2024-07-31 20:53 | disposition home or self-care (01) ==
LOC: SLEEP 20:58
PROVIDERS: PCP Family Medicine; Visit Provider Otolaryngology
DX: G47.33 Obstructive sleep apnea (adult) (pediatric) (principal)
CPT/HCPCS: 95810; T1013

== ENCOUNTER 2024-12-23 11:41 | Outpatient (CLI) | payer BC, SELFPAY ==
--- NOTE | 2024-12-23 12:17 | P.ANES_ITS ---
Anesthesia Charges Start Date/Time Anesthesia Start Date: 12/23/24 Anesthesia Start Time: 13:36 Stop Date/Time Anesthesia Stop Date: 12/23/24 Anesthesia Stop Time: 13:51 Summary Extremes of Age - Over 70 or under 1: MDA Coding CPT Codes CPT Codes: ANES UPR GI NDSC PX NOS - 59059 ([id number]) P3 - PATIENT W/SEVERE SYS DISEASE, QK - HYDROTECHNICAL SPECIALIST 2-4 CNCRNT ANES PROC, QX - PRESS TENDER SHORT GOODS SVC W/ MD MED DIRECTION Additional Codes: Summary - Extremes of Age - Over 70 or under 1: MDA ([id number])
--- NOTE | 2024-12-23 12:17 | W.ANESCHARGE ---
Anesthesia Charges Start Date/Time Anesthesia Start Date: 12/23/24 Anesthesia Start Time: 13:36 Stop Date/Time Anesthesia Stop Date: 12/23/24 Anesthesia Stop Time: 13:51 Summary Extremes of Age - Over 70 or under 1: MDA Coding CPT Codes CPT Codes: ANES UPR GI NDSC PX NOS - 75144 ([id number]) P3 - PATIENT W/SEVERE SYS DISEASE, QK - TREE PULLER 2-4 CNCRNT ANES PROC, QX - INFORMATION SERVICES VICE PRESIDENT SVC W/ MD MED DIRECTION Additional Codes: Summary - Extremes of Age - Over 70 or under 1: MDA ([id number])
--- NOTE | 2024-12-23 13:55 | P.ANES_ITS ---
Anesthesia Charges Start Date/Time Anesthesia Start Date: 12/23/24 Anesthesia Start Time: 13:36 Stop Date/Time Anesthesia Stop Date: 12/23/24 Anesthesia Stop Time: 13:51 Summary Extremes of Age - Over 70 or under 1: JUDGE'S CLERK Coding CPT Codes CPT Codes: ANES UPR GI NDSC PX NOS - 29014 ([id number]) P3 - PATIENT W/SEVERE SYS DISEASE, QK - SPORTS PHYSICAL THERAPIST 2-4 CNCRNT ANES PROC, QX - JUDGE'S CLERK SVC W/ MD MED DIRECTION Additional Codes: Summary - Extremes of Age - Over 70 or under 1: JUDGE'S CLERK ([id number])
--- NOTE | 2024-12-23 13:55 | W.ANESCHARGE ---
Anesthesia Charges Start Date/Time Anesthesia Start Date: 12/23/24 Anesthesia Start Time: 13:36 Stop Date/Time Anesthesia Stop Date: 12/23/24 Anesthesia Stop Time: 13:51 Summary Extremes of Age - Over 70 or under 1: CANDY CATCHER Coding CPT Codes CPT Codes: ANES UPR GI NDSC PX NOS - 67261 ([id number]) P3 - PATIENT W/SEVERE SYS DISEASE, QK - UNDERCOLLAR BASTER 2-4 CNCRNT ANES PROC, QX - CANDY CATCHER SVC W/ MD MED DIRECTION Additional Codes: Summary - Extremes of Age - Over 70 or under 1: CANDY CATCHER ([id number])
== END 2024-12-23 11:42 | disposition home or self-care (01) ==
LOC: OP CLINIC 11:43
PROVIDERS: PCP Family Medicine; Visit Provider Internal Medicine Gastroenterology
DX: R13.10 Dysphagia, unspecified (principal); K44.9 Diaphragmatic hernia without obstruction or gangrene
CPT/HCPCS: 00731; 43239; 99100; J2405; J2704